=== PATIENT | male | born 1980 | race Caucasian/White ===

== ENCOUNTER 2017-01-18 11:45 | Emergency (ER) | payer SELFPAY ==
[~2017-01-18] VITALS: Ht 180.3 cm; Wt 90.0 kg
[~2017-01-18 11:45] MED LIST: CHLO25 PO
[2017-01-18 11:51] VITALS: BP 123/89; PULSE 87; RESP 18; O2SAT 98
[2017-01-18 11:58] VITALS: BP 123/82; PULSE 76; RESP 18; O2SAT 100
[2017-01-18] MEDS ORDERED: SODIUM CHLOR 0.9% 1000 ML INJ 1,000 ML IV SCH (11:58)
[2017-01-18] MEDS ORDERED: SODIUM CHLORIDE 0.9% FLUSH 5 ML FLUSH IVF PRN (12:00)
[2017-01-18] MEDS ORDERED: NALOXONE HCL 2 MG/2 ML VIAL IV ONE (12:00)
[2017-01-18 12:05] VITALS: RESP 18; O2SAT 98
--- NOTE | 2017-01-18 12:05 | PD ---
HPI Chief Complaint: Respiratory Distress Time Seen by Provider: 11:58 Travel History International Travel<30 days: No Contact w/Intl Traveler<30days: No Traveled to known affect area: No History of Present Illness HPI 36-year-old male with history of alcohol abuse, presents to the ER brought in by EMS because he was found unresponsive, alcohol on breath, and was transported to the ED for further evaluation and treatment. He is not able to give me any further history. He was given Narcan and woke up and answer to his name. However, he is still fairly disoriented. Modifying Factors: None Associated Signs & Symptoms: Altered mental status Risk Factors: History of alcohol abuse PFSH Past Medical History Anxiety: Yes Depression: Yes Seizures: Yes (ETOH related) ?: Not Past Surgical History Other Surgery: Yes (elbow surgery as a child) Social History Alcohol Use: Yes Tobacco Use: Yes Substance Use: Yes (coke, marijuana, crystal meth) Allergies-Medications (Allergen,Severity, Reaction): Coded Allergies: No Known Allergies (Unverified , 05/29/16) Reported Meds & Prescriptions Reported Meds & Active Scripts Active Librium 25 mg Cap (Chlordiazepoxide) 25 Mg Cap 25 Mg PO DIRECTED 25 mg QID x 2 days then 25 mg TID x 2 days then 25 mg BID x 2 days and then 25 mg daily x 2 days Review of Systems ROS Limitations: Altered Mental Status Physical Exam Narrative GENERAL: Well-nourished, well-developed middle age white male patient who is lethargic, obtunded. Positive gag reflex. Alcohol on breath. SKIN: Warm and dry. HEAD: Normocephalic. EYES: No scleral icterus. No injection or drainage. Pupils are equal, round, poorly reactive to light bilaterally. NECK: Supple, trachea midline. CARDIOVASCULAR: Regular rate and rhythm without murmurs, gallops, or rubs. RESPIRATORY: Breath sounds equal bilaterally. No accessory muscle use. GASTROINTESTINAL: Abdomen soft, non-tender, nondistended. MUSCULOSKELETAL: No cyanosis, or edema. BACK: Nontender without obvious deformity. No CVA tenderness. Data Data Last Documented VS Vital Signs Date Time Temp Pulse Resp B/P Pulse Ox O2 Delivery O2 Flow Rate FiO2 01/18/17 13:40 82 18 113/75 98 Room Air 01/18/17 12:21 2 Orders Electrocardiogram (01/18/17 11:58) Ammonia (01/18/17 11:58) Complete Blood Count With Diff (01/18/17 11:58) Comprehensive Metabolic Panel (01/18/17 11:58) Creatine Kinase (Cpk) (01/18/17 11:58) Chest, Single Ap (01/18/17 11:58) Ct Brain W/O Iv Contrast(Rout) (01/18/17 11:58) Blood Glucose (01/18/17 11:58) Ecg Monitoring (01/18/17 11:58) Iv Access Insert/Monitor (01/18/17 11:58) Cath For Specimen (01/18/17 11:58) Oximetry (01/18/17 11:58) Naloxone Inj (Narcan Inj) (01/18/17 12:00) Sodium Chloride 0.9% Flush (Ns Flush) (01/18/17 12:00) Sodium Chlor 0.9% 1000 Ml Inj (Ns 1000 M (01/18/17 11:58) Drug Screen, Random Urine (01/18/17 11:58) Alcohol (Ethanol) (01/18/17 11:58) Labs Laboratory Tests Test 01/18/17 12:10 White Blood Count 6.0 TH/MM3 Red Blood Count 4.91 MIL/MM3 Hemoglobin 15.5 GM/DL Hematocrit 46.0 % Mean Corpuscular Volume 93.8 FL Mean Corpuscular Hemoglobin 31.6 PG Mean Corpuscular Hemoglobin 33.7 % Concent Red Cell Distribution Width 14.6 % Platelet Count 136 TH/MM3 Mean Platelet Volume 7.3 FL Neutrophils (%) (Auto) 55.2 % Lymphocytes (%) (Auto) 33.7 % Monocytes (%) (Auto) 6.7 % Eosinophils (%) (Auto) 2.7 % Basophils (%) (Auto) 1.7 % Neutrophils # (Auto) 3.3 TH/MM3 Lymphocytes # (Auto) 2.0 TH/MM3 Monocytes # (Auto) 0.4 TH/MM3 Eosinophils # (Auto) 0.2 TH/MM3 Basophils # (Auto) 0.1 TH/MM3 CBC Comment DIFF FINAL Differential Comment Sodium Level 143 MEQ/L Potassium Level 3.7 MEQ/L Chloride Level 105 MEQ/L Carbon Dioxide Level 27.1 MEQ/L Anion Gap 11 MEQ/L Blood Urea Nitrogen 6 MG/DL Creatinine 0.69 MG/DL Estimat Glomerular Filtration 129 ML/MIN Rate Random Glucose 96 MG/DL Calcium Level 8.1 MG/DL Total Bilirubin 0.3 MG/DL Aspartate Amino Transf 117 U/L (AST/SGOT) Alanine Aminotransferase 91 U/L (ALT/SGPT) Alkaline Phosphatase 90 U/L Ammonia 23 MCMOL/L Total Creatine Kinase 148 U/L Total Protein 7.6 GM/DL Albumin 3.9 GM/DL Urine Opiates Screen NEG Urine Barbiturates Screen NEG Urine Amphetamines Screen NEG Urine Benzodiazepines Screen NEG Urine Cocaine Screen NEG Urine Cannabinoids Screen NEG Ethyl Alcohol Level 608 MG/DL MDM Medical Decision Making Medical Screen Exam Complete: Yes Emergency Medical Condition: Yes Medical Record Reviewed: Yes Interpretation(s) Laboratory Tests Test 01/18/17 12:10 Platelet Count 136 TH/MM3 (150-450) Blood Urea Nitrogen 6 MG/DL (7-18) Calcium Level 8.1 MG/DL (8.5-10.1) Aspartate Amino Transf 117 U/L (15-37) (AST/SGOT) Alanine Aminotransferase 91 U/L (12-78) (ALT/SGPT) Ethyl Alcohol Level 608 MG/DL (0-5) Last [address] 01/18/17 1158 Signed Impressions: Service Date/Time: Wednesday, January 18, 2017 12:41 - CONCLUSION: Normal examination. Boogie Calvin Jr., MD Chest X-Ray 01/18/17 1158 Signed Impressions: Service Date/Time: Wednesday, January 18, 2017 11:55 - CONCLUSION: Normal examination. Boogie Calvin Jr., MD Differential Diagnosis Altered mental statusintoxication versus acute intracranial injuries versus metabolic issues versus dehydration versus sepsis Narrative Course CT of the brain did not reveal any signs of acute intracranial processes. Lab work shows that he is intoxicated with alcohol 600. At this point, my plan would be to let the patient sleep it off in the ER and release him once sober. Return for new issues as needed. Diagnosis Primary Impression: ALCOHOL ABUSE WITH INTOXICATION, UNCOMPLICATED Disposition: 01 DISCHARGE HOME Condition: Stable Jerzy Chery MD Jan 18, 2017 12:05 Jerzy Chery MD Jan 18, 2017 12:05
--- NOTE | 2017-01-18 12:18 | RADRPT ---
EXAM DATE/TIME: 01/18/2017 11:55 [facility] COMPARISON: No previous studies available for comparison. INDICATIONS : Syncope. MEDICAL HISTORY : None. SURGICAL HISTORY : None. ENCOUNTER: Initial ACUITY: 1 day PAIN SCORE: Non-responsive. LOCATION: Bilateral chest FINDINGS: A single view of the chest demonstrates the lungs to be symmetrically aerated without evidence of mas s, infiltrate or effusion. The cardiomediastinal contours are unremarkable. Osseous structures are intact. CONCLUSION: Normal examination. Boogie Calvin Jr., MD on January 18, 2017 at 12:15 Board Certified Radiologist. This report was verified electronically.
[2017-01-18 12:21] VITALS: BP 121/80; PULSE 66; RESP 18; O2SAT 100
[2017-01-18 12:24] LABS: AUTOMATED NEUTROPHIL # 3.3 TH/MM3 (1.8-7.7); BASOPHIL # 0.1 TH/MM3 (0-0.2); BASOPHIL % 1.7 % (0.0-2.0); EOSINOPHIL # 0.2 TH/MM3 (0-0.4); EOSINOPHIL % 2.7 % (0.0-4.0); HEMO FLAGS DIFF FINAL; LYMPH % 33.7 % (9.0-44.0); MEAN CELL VOLUME 93.8 FL (80.0-100.0); MEAN CORPUSCULAR HEMOGLOBIN 31.6 PG (27.0-34.0); MEAN CORPUSCULAR HGB CONC 33.7 % (32.0-36.0); MONO % 6.7 % (0.0-8.0); NEUT % 55.2 % (16.0-70.0); PLATELET COUNT 136 TH/MM3 (150-450); RED BLOOD COUNT 4.91 MIL/MM3 (4.50-5.90); RED CELL DISTRIBUTION WIDTH 14.6 % (11.6-17.2)
[2017-01-18 12:38] LABS: AMPHETAMINE, URINE NEG (NEG); BARBITURATES, URINE NEG (NEG); COCAINE, URINE NEG (NEG)
[2017-01-18 12:40] LABS: ALT (GPT) 91 U/L (12-78); ANION GAP 11 MEQ/L (5-15); AST (GOT) 117 U/L (15-37); BICARBONATE 27.1 MEQ/L (21.0-32.0); BLOOD UREA NITROGEN 6 MG/DL (7-18); CHLORIDE 105 MEQ/L (98-107); GLOMERULAR FILTRATION RATE 129 ML/MIN (>89); POTASSIUM 3.7 MEQ/L (3.5-5.1); SODIUM (NA) 143 MEQ/L (136-145)
[2017-01-18 12:42] LABS: ALKALINE PHOSPHATASE 90 U/L (45-117); CREATINE KINASE 148 U/L (39-308); TOTAL BILIRUBIN ADULT 0.3 MG/DL (0.2-1.0)
--- NOTE | 2017-01-18 13:19 | RADRPT ---
EXAM DATE/TIME: 01/18/2017 12:41 [facility] COMPARISON: No previous studies available for comparison. INDICATIONS : Found unresponsive, altered mental status. RADIATION DOSE: 40.83 CTDIvol (mGy) MEDICAL HISTORY : Seizures. SURGICAL HISTORY : None. ENCOUNTER: Initial ACUITY: 1 day PAIN SCALE: 0/10 LOCATION: cranial TECHNIQUE: Multiple contiguous axial images were obtained of the head. Using automated exposure control and adj ustment of the mA and/or kV according to patient size, radiation dose was kept as low as reasonably a chievable to obtain optimal diagnostic quality images. FINDINGS: CEREBRUM: The ventricles are normal for age. No evidence of midline shift, mass lesion, hemorrhage or acute in farction. No extra-axial fluid collections are seen. POSTERIOR FOSSA: The cerebellum and brainstem are intact. The 4th ventricle is midline. The cerebellopontine angle i s unremarkable. EXTRACRANIAL: The visualized portion of the orbits is intact. SKULL: The calvaria is intact. No evidence of skull fracture. CONCLUSION: Normal examination. Boogie Calvin Jr., MD on January 18, 2017 at 13:16 Board Certified Radiologist. This report was verified electronically.
[2017-01-18 13:40] VITALS: BP 113/75; PULSE 82; RESP 18; O2SAT 98
[2017-01-18 16:56] VITALS: BP 132/79; TEMP 98.3
--- NOTE | 2017-01-18 21:36 | EKG ---
Date Performed: 01/18/2017 Time Performed: 12:23:26 PTAGE: 36 years EKG: Sinus rhythm WITH FIRST DEGREE AV BLOCK POSSIBLE INFERIOR MYOCARDIAL INFARCTION NONSPECIFIC INTRAVENTRICULAR COND UCTION DELAY ABNORMAL ECG PREVIOUS TRACING : 05/29/2016 15.20 No significant change from previous tracing noted. DOCTOR: Howard Conklin Interpretating Date/Time 01/18/2017 21:35:17
== END 2017-01-18 16:00 | disposition home or self-care (01) ==
LOC: NEPC 11:45
DX: F10.120 Alcohol abuse with intoxication, uncomplicated (principal); R94.31 Abnormal electrocardiogram [ECG] [EKG]; R41.82 Altered mental status, unspecified; F14.90 Cocaine use, unspecified, uncomplicated; F12.90 Cannabis use, unspecified, uncomplicated; Z72.0 Tobacco use
CPT/HCPCS: 70450; 71010; 80053; 80307; 80320; 82140; 82550; 85025; 93005; 96374; 99285; J2310; J7030; P9612

== ENCOUNTER 2017-02-05 15:52 | Emergency (ER) | payer SELFPAY ==
[~2017-02-05] VITALS: Ht 177.8 cm; Wt 100.0 kg
[2017-02-05 15:54] VITALS: BP 117/82; PULSE 76; RESP 20; TEMP 98.5; O2SAT 99
[2017-02-05 16:47] LABS: AUTOMATED NEUTROPHIL # 1.6 TH/MM3 (1.8-7.7); BASOPHIL # 0.1 TH/MM3 (0-0.2); BASOPHIL % 1.4 % (0.0-2.0); EOSINOPHIL # 0.1 TH/MM3 (0-0.4); EOSINOPHIL % 3.3 % (0.0-4.0); HEMATOCRIT 40.3 % (39.0-51.0); HEMO FLAGS DIFF FINAL; LYMPH % 42.3 % (9.0-44.0); LYMPHOCYTE # 1.7 TH/MM3 (1.0-4.8); MEAN CELL VOLUME 92.1 FL (80.0-100.0); MEAN CORPUSCULAR HEMOGLOBIN 31.8 PG (27.0-34.0); MEAN CORPUSCULAR HGB CONC 34.5 % (32.0-36.0); MONO % 13.9 % (0.0-8.0); NEUT % 39.1 % (16.0-70.0); PLATELET COUNT 104 TH/MM3 (150-450); RED BLOOD COUNT 4.37 MIL/MM3 (4.50-5.90); WHITE BLOOD COUNT 4.1 TH/MM3 (4.0-11.0)
[2017-02-05 17:05] LABS: ANION GAP 9 MEQ/L (5-15); AST (GOT) 194 U/L (15-37); BICARBONATE 31.7 MEQ/L (21.0-32.0); BLOOD UREA NITROGEN 6 MG/DL (7-18); CHLORIDE 103 MEQ/L (98-107); GLOMERULAR FILTRATION RATE 133 ML/MIN (>89); POTASSIUM 3.4 MEQ/L (3.5-5.1); SODIUM (NA) 144 MEQ/L (136-145)
[2017-02-05 17:10] LABS: ALKALINE PHOSPHATASE 86 U/L (45-117); ALT (GPT) 135 U/L (12-78); TOTAL BILIRUBIN ADULT 0.2 MG/DL (0.2-1.0)
[2017-02-05] MEDS ORDERED: THIAMINE INJ 100 MG in SODIUM CHLORIDE 0.9% INJ 100 ML IV ONE (17:30)
--- NOTE | 2017-02-05 17:35 | PD ---
HPI Chief Complaint: Alcohol/Drug Intoxication Time Seen by Provider: 17:03 Travel History International Travel<30 days: No Contact w/Intl Traveler<30days: No Traveled to known affect area: No History of Present Illness HPI 36yo M with PMH of alcohol abuse presents to the ED for alcohol intoxication. Pt is easily arousable and admits to drinking a few pints today. Denies any fall, chest pain, sob, n/v, abdominal pain, weakness or numbness. PFSH Past Medical History Anxiety: Yes Depression: Yes Seizures: Yes (ETOH related) Past Surgical History Other Surgery: Yes (elbow surgery as a child) Social History Alcohol Use: Yes Tobacco Use: Yes Substance Use: Yes (coke, marijuana, crystal meth) Allergies-Medications (Allergen,Severity, Reaction): Coded Allergies: No Known Allergies (Unverified , 05/29/16) Reported Meds & Prescriptions Reported Meds & Active Scripts Active No Active Prescriptions or Reported Medications Review of Systems Except as stated in HPI: all other systems reviewed are Neg Physical Exam Narrative GENERAL: 36yo M intoxicated. SKIN: Warm and dry. HEAD: Atraumatic. Normocephalic. EYES: Pupils equal and round at 3mm bilaterally. EOMI. ENT: No nasal bleeding or discharge. Mucous membranes pink and moist. NECK: Trachea midline. No JVD. CARDIOVASCULAR: Regular rate and rhythm. No murmur appreciated. RESPIRATORY: No accessory muscle use. Clear to auscultation. Breath sounds equal bilaterally. GASTROINTESTINAL: Abdomen soft, non-tender, nondistended. No rebound tenderness or guarding. MUSCULOSKELETAL: No obvious deformities. No clubbing. No cyanosis. No edema. NEUROLOGICAL: Intoxicated but easily arousable and answers questions. No obvious cranial nerve deficits. Motor grossly within normal limits. Data Data Last Documented VS Vital Signs Date Time Temp Pulse Resp B/P Pulse Ox O2 Delivery O2 Flow Rate FiO2 02/06/17 06:35 98.2 81 14 123/63 99 02/05/17 19:10 Room Air Orders Complete Blood Count With Diff (02/05/17 16:30) Comprehensive Metabolic Panel (02/05/17 16:30) Alcohol (Ethanol) (02/05/17 16:30) Thiamine Inj (Thiamine Inj) (02/05/17 17:30) Labs Laboratory Tests Test 02/05/17 16:30 White Blood Count 4.1 TH/MM3 Red Blood Count 4.37 MIL/MM3 Hemoglobin 13.9 GM/DL Hematocrit 40.3 % Mean Corpuscular Volume 92.1 FL Mean Corpuscular Hemoglobin 31.8 PG Mean Corpuscular Hemoglobin 34.5 % Concent Red Cell Distribution Width 15.0 % Platelet Count 104 TH/MM3 Mean Platelet Volume 7.6 FL Neutrophils (%) (Auto) 39.1 % Lymphocytes (%) (Auto) 42.3 % Monocytes (%) (Auto) 13.9 % Eosinophils (%) (Auto) 3.3 % Basophils (%) (Auto) 1.4 % Neutrophils # (Auto) 1.6 TH/MM3 Lymphocytes # (Auto) 1.7 TH/MM3 Monocytes # (Auto) 0.6 TH/MM3 Eosinophils # (Auto) 0.1 TH/MM3 Basophils # (Auto) 0.1 TH/MM3 CBC Comment DIFF FINAL Differential Comment Sodium Level 144 MEQ/L Potassium Level 3.4 MEQ/L Chloride Level 103 MEQ/L Carbon Dioxide Level 31.7 MEQ/L Anion Gap 9 MEQ/L Blood Urea Nitrogen 6 MG/DL Creatinine 0.67 MG/DL Estimat Glomerular Filtration 133 ML/MIN Rate Random Glucose 88 MG/DL Calcium Level 7.9 MG/DL Total Bilirubin 0.2 MG/DL Aspartate Amino Transf 194 U/L (AST/SGOT) Alanine Aminotransferase 135 U/L (ALT/SGPT) Alkaline Phosphatase 86 U/L Total Protein 7.1 GM/DL Albumin 3.7 GM/DL Ethyl Alcohol Level 477 MG/DL [facility] Medical Decision Making Medical Screen Exam Complete: Yes Emergency Medical Condition: Yes Differential Diagnosis Alcohol intoxication Narrative Course 36yo M with alcohol intoxication. Pt admits to drinking a few pints of alcohol and denies any complaints. Pt has no signs of trauma and follows commands. Labs reviewed, no leukocytosis. K: 3.4. Elevated liver enzymes but pt has no abdominal pain and is a chronic alcoholic. Blood alcohol is 477. VS wnl. Pt given thiamine. Pt is medically clear for discharge when sober and ambulating without assistance. Diagnosis Primary Impression: Alcohol intoxication Qualified Code: F10.120 - Alcohol intoxication, uncomplicated Patient Instructions: General Instructions Departure Forms: Tests/Procedures Additional Instructions: Please follow up with your PMD in 3-7 days. Return to the ED if symptoms worsen. Med/Other Pt SpecificInfo: No Change to Meds Scripts No Active Prescriptions or Reported Meds Disposition: 01 DISCHARGE HOME Condition: Stable Alva Paredes DO Feb 05, 2017 17:35
[2017-02-05 19:10] VITALS: BP 145/63; PULSE 73; RESP 15; TEMP 98.4; O2SAT 96
[2017-02-06 06:35] VITALS: BP 123/63; TEMP 98.2
== END 2017-02-06 06:41 | disposition home or self-care (01) ==
LOC: NEPA 15:52
DX: F10.120 Alcohol abuse with intoxication, uncomplicated (principal); R74.8 Abnormal levels of other serum enzymes; Z72.0 Tobacco use
CPT/HCPCS: 80053; 80307; 85025; 96365; 99284; J3411

== ENCOUNTER 2017-02-08 00:15 | Emergency (ER) | payer SELFPAY ==
[2017-02-08 00:18] VITALS: BP 133/85; PULSE 79; RESP 18; TEMP 98.2; O2SAT 98
--- NOTE | 2017-02-08 00:43 | PD ---
HPI Chief Complaint: Alcohol/Drug Intoxication Time Seen by Provider: 00:41 Travel History International Travel<30 days: No Contact w/Intl Traveler<30days: No Traveled to known affect area: No History of Present Illness HPI Patient comes in by EMS after being found intoxicated. Patient denies any medical complaints or concerns this time. Denies any chest pain, shortness of breath, abdominal pain, headache, fevers, nausea, vomiting, or pain anywhere. Patient states that [place] is in town for bike week and apparently drank too much. PFSH Past Medical History Anxiety: Yes Depression: Yes Diminished Hearing: No Seizures: Yes (ETOH related) Tetanus Vaccination: Unknown Influenza Vaccination: No Past Surgical History Other Surgery: Yes (Elbow surgery as a child) Social History Alcohol Use: Yes Tobacco Use: Yes Substance Use: Yes (coke, marijuana, crystal meth) Allergies-Medications (Allergen,Severity, Reaction): Coded Allergies: No Known Allergies (Unverified , 02/08/17) Reported Meds & Prescriptions Reported Meds & Active Scripts Active No Active Prescriptions or Reported Medications Review of Systems ROS Limitations: Intoxication Except as stated in HPI: all other systems reviewed are Neg Physical Exam Exam Limitations: Intoxication Narrative GENERAL: Well-developed, overly nourished, in no acute distress, and non-ill appearing. SKIN: Warm and dry. HEAD: Atraumatic. Normocephalic. EYES: Pupils equal and round. EOMI. No scleral icterus. No injection or drainage. ENT: No nasal bleeding or discharge. Mucous membranes pink and moist. NECK: Trachea midline. Supple. No nuclear rigidity. CARDIOVASCULAR: Regular rate and rhythm. No murmur appreciated. RESPIRATORY: No accessory muscle use. No respiratory distress. Clear to auscultation. Breath sounds equal bilaterally. MUSCULOSKELETAL: No obvious deformities. No clubbing. No cyanosis. No edema. Full range of motion. NEUROLOGICAL: Awake and alert. No obvious cranial nerve deficits. Motor grossly within normal limits. PSYCHIATRIC: Appropriate mood and affect; insight and judgment normal. Data Data Last Documented VS Vital Signs Date Time Temp Pulse Resp B/P Pulse Ox O2 Delivery O2 Flow Rate FiO2 02/08/17 03:08 99 18 100 Room Air 02/08/17 00:18 98.2 133/85 MDM Medical Decision Making Medical Screen Exam Complete: Yes Emergency Medical Condition: No Differential Diagnosis Alcohol intoxication, alcohol abuse, alcohol dependence, other Narrative Course Patient was seen and examined. Patient will be monitored in the emergency department until clinically sober and able to ambulate on their own or until a sober responsible adult comes to pick them up. RN is aware of this. Patient in no obvious distress upon re-evaluation. Instructions and recommendations were detailed in discharge paperwork. Pt ambulated without difficulty out of ED at discharge. Diagnosis Primary Impression: Alcohol intoxication Qualified Code: F10.120 - Alcohol intoxication, uncomplicated Patient Instructions: Alcohol Intoxication (ED), General Instructions Additional Instructions: Follow-up with your primary care physician as needed. Stop drinking. Return to the emergency department for any emergent concerns. Scripts No Active Prescriptions or Reported Meds Disposition: 01 DISCHARGE HOME Condition: Stable Balwinder Smith Feb 08, 2017 00:43
[2017-02-08 03:08] VITALS: PULSE 99; RESP 18; O2SAT 100
== END 2017-02-08 06:54 | disposition home or self-care (01) ==
LOC: NEPA 00:15
DX: F10.120 Alcohol abuse with intoxication, uncomplicated (principal); Z72.0 Tobacco use
CPT/HCPCS: 99284

== ENCOUNTER 2017-03-16 15:56 | Emergency (ER) | payer SELFPAY ==
[~2017-03-16] VITALS: Ht 180.3 cm; Wt 93.0 kg
[2017-03-16 16:02] VITALS: BP 118/61; PULSE 93; RESP 19; O2SAT 93
[2017-03-16] MEDS ORDERED: SODIUM CHLOR 0.9% 1000 ML INJ 1,000 ML IV ONE ×2 (16:15→18:30)
[2017-03-16] MEDS ORDERED: SODIUM CHLORIDE 0.9% FLUSH 10 ML FLUSH IVF PRN (16:15)
--- NOTE | 2017-03-16 16:40 | PD ---
HPI Chief Complaint: Syncope/Near-Syncope Time Seen by Provider: 16:20 Travel History International Travel<30 days: No Contact w/Intl Traveler<30days: No Traveled to known affect area: No History of Present Illness HPI Patient is a 36-year-old male presenting to emergency via EMS for evaluation after a witnessed syncopal episode. Patient states that he has been drinking this morning, approximately 12 alcoholic beverages. He walked outside and passed out. Patient denies any pain currently, he denies any dizziness or chest pain, shortness of breath, headache or head injury. Patient states that he is fine and wants to go home. He states he found his friend did this morning , he reports that she was only 47 years old and of COPD. This is why he has been drinking all day. [facility] Past Medical History Anxiety: Yes Depression: Yes Diminished Hearing: No Integumentary: Yes (psoriasis) Seizures: Yes (ETOH related) Influenza Vaccination: No Past Surgical History Surgical History: No Previous Surgery Other Surgery: Yes (Elbow surgery as a child) Social History Alcohol Use: Yes Tobacco Use: Yes (11/26 ppd) Substance Use: Yes (coke, marijuana, crystal meth, ) Allergies-Medications (Allergen,Severity, Reaction): Coded Allergies: No Known Allergies (Unverified , 03/16/17) Reported Meds & Prescriptions Reported Meds & Active Scripts Active No Active Prescriptions or Reported Medications Review of Systems Except as stated in HPI: all other systems reviewed are Neg Neurologic: Positive: Syncope Psychiatric: Positive: Substance Abuse Physical Exam Narrative GENERAL: Well-developed, well-nourished, alert male. SKIN: Focused skin assessment warm/dry. HEAD: Atraumatic. Normocephalic. EYES: Pupils equal and round. No scleral icterus. No injection or drainage. ENT: No nasal bleeding or discharge. Mucous membranes pink and moist. NECK: Trachea midline. No JVD. CARDIOVASCULAR: Regular rate and rhythm. No murmur appreciated. RESPIRATORY: No accessory muscle use. Scattered expiratory wheezes in bases. Breath sounds equal bilaterally. GASTROINTESTINAL: Abdomen soft, non-tender, nondistended. Hepatic and splenic margins not palpable. MUSCULOSKELETAL: No obvious deformities. No clubbing. No cyanosis. No edema. NEUROLOGICAL: Awake and alert. No obvious cranial nerve deficits. Motor grossly within normal limits. Normal speech. PSYCHIATRIC: Appropriate mood and affect; insight and judgment normal. Data Data Last Documented VS Vital Signs Date Time Temp Pulse Resp B/P Pulse Ox O2 Delivery O2 Flow Rate FiO2 03/16/17 17:00 81 19 104/73 93 20 109/77 91 19 108/71 03/16/17 16:45 99 Orders Complete Blood Count With Diff (03/16/17 16:12) Comprehensive Metabolic Panel (03/16/17 16:12) Urinalysis - C+S If Indicated (03/16/17 16:12) Electrocardiogram (03/16/17 16:12) Oximetry (03/16/17 16:12) Iv Access Insert/Monitor (03/16/17 16:12) Ecg Monitoring (03/16/17 16:12) Sodium Chloride 0.9% Flush (Ns Flush) (03/16/17 16:15) Alcohol (Ethanol) (03/16/17 16:12) Sodium Chlor 0.9% 1000 Ml Inj (Ns 1000 M (03/16/17 16:15) Orthostatic Vital Signs (03/16/17 16:54) Ckmb (Isoenzyme) Profile (03/16/17 16:32) Troponin I (03/16/17 16:32) Sodium Chlor 0.9% 1000 Ml Inj (Ns 1000 M (03/16/17 18:30) Ct Brain W/O Iv Contrast(Rout) (03/16/17 ) Labs Laboratory Tests Test 03/16/17 03/16/17 16:30 16:32 Urine Color LIGHT-YELLOW Urine Turbidity CLEAR Urine pH 5.0 Urine Specific [place] 1.002 Urine Protein NEG mg/dL Urine Glucose (UA) NEG mg/dL Urine Ketones NEG mg/dL Urine Occult Blood NEG Urine Nitrite NEG Urine Bilirubin NEG Urine Urobilinogen LESS THAN 2.0 MG/DL Urine Leukocyte Esterase NEG Urine RBC LESS THAN 1 /hpf Urine WBC 1 /hpf Urine Mucus FEW /lpf Microscopic Urinalysis Comment CULT NOT INDICATED White Blood Count 6.0 TH/MM3 Red Blood Count 4.01 MIL/MM3 Hemoglobin 13.0 GM/DL Hematocrit 38.4 % Mean Corpuscular Volume 95.8 FL Mean Corpuscular Hemoglobin 32.5 PG Mean Corpuscular Hemoglobin 33.9 % Concent Red Cell Distribution Width 15.9 % Platelet Count 268 TH/MM3 Mean Platelet Volume 6.8 FL Neutrophils (%) (Auto) 48.6 % Lymphocytes (%) (Auto) 35.0 % Monocytes (%) (Auto) 11.1 % Eosinophils (%) (Auto) 3.9 % Basophils (%) (Auto) 1.4 % Neutrophils # (Auto) 2.9 TH/MM3 Lymphocytes # (Auto) 2.1 TH/MM3 Monocytes # (Auto) 0.7 TH/MM3 Eosinophils # (Auto) 0.2 TH/MM3 Basophils # (Auto) 0.1 TH/MM3 CBC Comment DIFF FINAL Differential Comment Sodium Level 144 MEQ/L Potassium Level 3.5 MEQ/L Chloride Level 109 MEQ/L Carbon Dioxide Level 25.4 MEQ/L Anion Gap 10 MEQ/L Blood Urea Nitrogen 4 MG/DL Creatinine 0.55 MG/DL Estimat Glomerular Filtration 168 ML/MIN Rate Random Glucose 88 MG/DL Calcium Level 8.1 MG/DL Total Bilirubin 0.2 MG/DL Aspartate Amino Transf 102 U/L (AST/SGOT) Alanine Aminotransferase 99 U/L (ALT/SGPT) Alkaline Phosphatase 84 U/L Total Creatine Kinase 93 U/L Troponin I LESS THAN 0.02 NG/ML Total Protein 6.6 GM/DL Albumin 3.3 GM/DL Ethyl Alcohol Level 339 MG/DL MDM Medical Decision Making Medical Screen Exam Complete: Yes Emergency Medical Condition: Yes Interpretation(s) Laboratory Tests Test 03/16/17 03/16/17 16:30 16:32 Urine Color LIGHT-YELLOW Urine Turbidity CLEAR Urine pH 5.0 Urine Specific [place] 1.002 Urine Protein NEG mg/dL Urine Glucose (UA) NEG mg/dL Urine Ketones NEG mg/dL Urine Occult Blood NEG Urine Nitrite NEG Urine Bilirubin NEG Urine Urobilinogen LESS THAN 2.0 MG/DL Urine Leukocyte Esterase NEG Urine RBC LESS THAN 1 /hpf Urine WBC 1 /hpf Urine Mucus FEW /lpf Microscopic Urinalysis Comment CULT NOT INDICATED White Blood Count 6.0 TH/MM3 Red Blood Count 4.01 MIL/MM3 Hemoglobin 13.0 GM/DL Hematocrit 38.4 % Mean Corpuscular Volume 95.8 FL Mean Corpuscular Hemoglobin 32.5 PG Mean Corpuscular Hemoglobin 33.9 % Concent Red Cell Distribution Width 15.9 % Platelet Count 268 TH/MM3 Mean Platelet Volume 6.8 FL Neutrophils (%) (Auto) 48.6 % Lymphocytes (%) (Auto) 35.0 % Monocytes (%) (Auto) 11.1 % Eosinophils (%) (Auto) 3.9 % Basophils (%) (Auto) 1.4 % Neutrophils # (Auto) 2.9 TH/MM3 Lymphocytes # (Auto) 2.1 TH/MM3 Monocytes # (Auto) 0.7 TH/MM3 Eosinophils # (Auto) 0.2 TH/MM3 Basophils # (Auto) 0.1 TH/MM3 CBC Comment DIFF FINAL Differential Comment Sodium Level 144 MEQ/L Potassium Level 3.5 MEQ/L Chloride Level 109 MEQ/L Carbon Dioxide Level 25.4 MEQ/L Anion Gap 10 MEQ/L Blood Urea Nitrogen 4 MG/DL Creatinine 0.55 MG/DL Estimat Glomerular Filtration 168 ML/MIN Rate Random Glucose 88 MG/DL Calcium Level 8.1 MG/DL Total Bilirubin 0.2 MG/DL Aspartate Amino Transf 102 U/L (AST/SGOT) Alanine Aminotransferase 99 U/L (ALT/SGPT) Alkaline Phosphatase 84 U/L Total Creatine Kinase 93 U/L Troponin I LESS THAN 0.02 NG/ML Total Protein 6.6 GM/DL Albumin 3.3 GM/DL Ethyl Alcohol Level 339 MG/DL Vital Signs Date Time Temp Pulse Resp B/P Pulse Ox O2 Delivery O2 Flow Rate FiO2 03/16/17 16:02 93 19 118/61 93 Differential Diagnosis Intoxication versus electrolyte abnormality versus vasovagal versus arrhythmia versus other Narrative Course Patient's 36-year-old male brought in by EMS for evaluation after a syncopal episode. His vital signs are stable, patient is alert and oriented 3 with no neurological deficits. Labs ordered and pending. Patient placed on telemetry monitoring, continuous pulse oximetry, IV access initiated. Alcohol level was 339, CBC unremarkable, chemistry is unremarkable. Urinalysis unremarkable. CT scan of the brain is negative for acute abnormality. Patient has been sleeping in no acute distress, he was observed ambulating emergency department without difficulty. Patient is medically cleared at this time, he will be allowed to sober up in the emergency department. Patient was encouraged to avoid excessive use of alcohol. He is encouraged follow-up with his primary doctor return to emergency department any new or worsening symptoms. Patient is stable for discharge Diagnosis Primary Impression: Syncope Qualified Code: R55 - Syncope, unspecified syncope type Additional Impression: Alcohol intoxication Qualified Code: F10.120 - Alcohol intoxication, uncomplicated Referrals: Primary Care Physician Patient Instructions: Abuse of Alcohol (ED), Alcohol Intoxication (ED), General Instructions, Syncope (DC) Additional Instructions: Avoid excessive use of alcohol Maintain adequate fluid intake Eat regular meals Follow-up with a primary doctor Return to ER for any new or worsening symptoms Med/Other Pt SpecificInfo: No Change to Meds Scripts No Active Prescriptions or Reported Meds Disposition: 01 DISCHARGE HOME Condition: Stable Elizabeth Gil Mar 16, 2017 16:40 Elizabeth Gil Mar 16, 2017 16:40
[2017-03-16 16:45] VITALS: O2SAT 99
[2017-03-16 17:00] VITALS: BP_SYST 104; BP_SYST 108; BP_SYST 109; BP_DIAS 71; BP_DIAS 73; BP_DIAS 77; RESP 19; RESP 20
[2017-03-16 17:13] LABS: AUTOMATED NEUTROPHIL # 2.9 TH/MM3 (1.8-7.7); BASOPHIL # 0.1 TH/MM3 (0-0.2); BASOPHIL % 1.4 % (0.0-2.0); EOSINOPHIL # 0.2 TH/MM3 (0-0.4); EOSINOPHIL % 3.9 % (0.0-4.0); HEMATOCRIT 38.4 % (39.0-51.0); HEMO FLAGS DIFF FINAL; LYMPHOCYTE # 2.1 TH/MM3 (1.0-4.8); MEAN CELL VOLUME 95.8 FL (80.0-100.0); MEAN CORPUSCULAR HEMOGLOBIN 32.5 PG (27.0-34.0); MEAN CORPUSCULAR HGB CONC 33.9 % (32.0-36.0); MONO % 11.1 % (0.0-8.0); NEUT % 48.6 % (16.0-70.0); PLATELET COUNT 268 TH/MM3 (150-450); RED BLOOD COUNT 4.01 MIL/MM3 (4.50-5.90); RED CELL DISTRIBUTION WIDTH 15.9 % (11.6-17.2)
[2017-03-16 17:26] LABS: BLOOD, URINE NEG (NEG); COMMENT (UR) CULT NOT INDICATED; CULTURE IF INDICATED CULT NOT INDICATED; GLUCOSE,URINE NEG (NEG); KETONE, URINE NEG (NEG); MUCUS URINE FEW /lpf (OCC); NITRITE,URINE NEG (NEG); URINE COLOR LIGHT-YELLOW (YELLW/STRAW)
[2017-03-16 17:31] LABS: ANION GAP 10 MEQ/L (5-15)
[2017-03-16 17:36] LABS: ALKALINE PHOSPHATASE 84 U/L (45-117); ALT (GPT) 99 U/L (12-78); AST (GOT) 102 U/L (15-37); BICARBONATE 25.4 MEQ/L (21.0-32.0); BLOOD UREA NITROGEN 4 MG/DL (7-18); CHLORIDE 109 MEQ/L (98-107); GLOMERULAR FILTRATION RATE 168 ML/MIN (>89); POTASSIUM 3.5 MEQ/L (3.5-5.1); SODIUM (NA) 144 MEQ/L (136-145); TOTAL BILIRUBIN ADULT 0.2 MG/DL (0.2-1.0)
[2017-03-16 18:41] LABS: CREATINE KINASE 93 U/L (39-308)
--- NOTE | 2017-03-16 20:20 | RADRPT ---
EXAM DATE/TIME: 03/16/2017 20:11 [facility] COMPARISON: CT BRAIN W/O CONTRAST, January 18, 2017, 12:41. INDICATIONS : Syncopal episode today. RADIATION DOSE: 40.41 CTDIvol (mGy) MEDICAL HISTORY : Seizures. SURGICAL HISTORY : None. ENCOUNTER: Initial ACUITY: 1 day PAIN SCALE: 5/10 LOCATION: Bilateral head TECHNIQUE: Multiple contiguous axial images were obtained of the head. Using automated exposure control and adj ustment of the mA and/or kV according to patient size, radiation dose was kept as low as reasonably a chievable to obtain optimal diagnostic quality images. FINDINGS: CEREBRUM: The ventricles are normal for age. No evidence of midline shift, mass lesion, hemorrhage or acute in farction. No extra-axial fluid collections are seen. POSTERIOR FOSSA: The cerebellum and brainstem are intact. The 4th ventricle is midline. The cerebellopontine angle i s unremarkable. EXTRACRANIAL: The visualized portion of the orbits is intact. SKULL: The calvaria is intact. No evidence of skull fracture. CONCLUSION: Negative CT of the brain without contrast. Boogie Herron MD on March 16, 2017 at 20:17 Board Certified Radiologist. This report was verified electronically.
[2017-03-16 20:38] VITALS: BP 111/73; PULSE 80; RESP 19; TEMP 98.2; O2SAT 98
--- NOTE | 2017-03-17 13:32 | EKG ---
Date Performed: 03/16/2017 Time Performed: 16:44:50 PTAGE: 36 years EKG: Sinus rhythm WITH FIRST DEGREE AV BLOCK POSSIBLE LEFT ATRIAL ENLARGEMENT POSSIBLE LEFT VENTRICULAR HYPERTROPHY Co mpared to prior tracing no significant change ABNORMAL ECG PREVIOUS TRACING : 01/18/2017 12.23 DOCTOR: Spencer Garcia Interpretating Date/Time 03/17/2017 13:30:32
== END 2017-03-16 20:42 | disposition home or self-care (01) ==
LOC: NEPE 15:56
DX: R55 Syncope and collapse (principal); F10.120 Alcohol abuse with intoxication, uncomplicated; R94.31 Abnormal electrocardiogram [ECG] [EKG]; F17.200 Nicotine dependence, unspecified, uncomplicated; Z86.59 Personal history of other mental and behavioral disorders; Z87.2 Personal history of diseases of the skin and subcutaneous tissue
CPT/HCPCS: 70450; 80053; 80307; 81001; 82550; 84484; 85025; 93005

== ENCOUNTER 2017-05-11 11:36 | Inpatient (IN) | payer SELFPAY ==
[~2017-05-11] VITALS: Ht 180.3 cm; Wt 91.5 kg
[2017-05-11 11:39] VITALS: BP 126/74; PULSE 118; RESP 20; TEMP 99.6; O2SAT 98
[2017-05-11] MEDS ORDERED: SODIUM CHLOR 0.9% 1000 ML INJ 1,000 ML IV SCH (12:43)
[2017-05-11] MEDS ORDERED: MORPHINE SULFATE 4 MG/ML INJ IV PUSH ONE (12:45)
[2017-05-11] MEDS ORDERED: KETOROLAC TROMETHAMINE 30 MG/ML (IVP) VIAL IVP ONE (12:45)
[2017-05-11] MEDS ORDERED: SODIUM CHLORIDE 0.9% FLUSH 10 ML FLUSH IV FLUSH PRN (12:45)
[2017-05-11 13:10] LABS: BASOPHIL % 0.2 % (0.0-2.0); EOSINOPHIL % 0.2 % (0.0-4.0); HEMATOCRIT 44.2 % (39.0-51.0); HEMO FLAGS DIFF FINAL; LYMPH % 6.5 % (9.0-44.0); LYMPHOCYTE # 0.7 TH/MM3 (1.0-4.8); MEAN CELL VOLUME 95.2 FL (80.0-100.0); MEAN CORPUSCULAR HEMOGLOBIN 31.8 PG (27.0-34.0); MEAN CORPUSCULAR HGB CONC 33.4 % (32.0-36.0); MONO % 12.3 % (0.0-8.0); NEUT % 80.8 % (16.0-70.0); PLATELET COUNT 143 TH/MM3 (150-450); RED BLOOD COUNT 4.64 MIL/MM3 (4.50-5.90); RED CELL DISTRIBUTION WIDTH 13.5 % (11.6-17.2); WHITE BLOOD COUNT 11.2 TH/MM3 (4.0-11.0)
[2017-05-11 13:28] LABS: ALKALINE PHOSPHATASE 136 U/L (45-117); ALT (GPT) 71 U/L (12-78); ANION GAP 8 MEQ/L (5-15); AST (GOT) 72 U/L (15-37); BLOOD UREA NITROGEN 4 MG/DL (7-18); CHLORIDE 94 MEQ/L (98-107); GLOMERULAR FILTRATION RATE 146 ML/MIN (>89); POTASSIUM 4.2 MEQ/L (3.5-5.1); SODIUM (NA) 131 MEQ/L (136-145); TOTAL BILIRUBIN ADULT 1.1 MG/DL (0.2-1.0)
--- NOTE | 2017-05-11 13:41 | RADRPT ---
EXAM DATE/TIME: 05/11/2017 13:11 [facility] COMPARISON: No previous studies available for comparison. INDICATIONS : Right low abdomen pain for three days. ORAL CONTRAST: No oral contrast ingested. RADIATION DOSE: 9.96 CTDIvol (mGy) MEDICAL HISTORY : ETOH SURGICAL HISTORY : None. ENCOUNTER: Initial ACUITY: 3 days PAIN SCALE: 6/10 LOCATION: Right lower quadrant TECHNIQUE: Volumetric scanning of the abdomen and pelvis was performed. Using automated exposure control and ad justment of the mA and/or kV according to patient size, radiation dose was kept as low as reasonably achievable to obtain optimal diagnostic quality images. FINDINGS: LOWER LUNGS: The visualized lower lungs are clear. LIVER: Severe diffuse low-density. No focal lesion is seen. There are calcified stones in the gallbladder. There is no dilation of the biliary tree. SPLEEN: Normal size without lesion. PANCREAS: Within normal limits. KIDNEYS: Normal in size and shape. There is no mass, stone, or hydronephrosis. ADRENAL GLANDS: Within normal limits. VASCULAR: There is no aortic aneurysm. BOWEL/MESENTERY: The stomach, small bowel, and colon demonstrate no acute abnormality. There is no free intraperitone al air or fluid. ABDOMINAL WALL: No hernia. RETROPERITONEUM: There is no lymphadenopathy. BLADDER: No wall thickening or mass. REPRODUCTIVE: Within normal limits. INGUINAL: There is severe subcutaneous edema and inflammatory change in the right superior inguinal region and along the right lateral inferior pelvis. There is an enlarged right inguinal lymph node measuring 19 x 11 mm. There is also subcutaneous stranding and skin thickening along the right lateral gluteal reg ion. MUSCULOSKELETAL: No acute abnormality. CONCLUSION: 1. Skin thickening and subcutaneous inflammatory changes along the right lateral pelvis, right inguin al region, and right lateral gluteal region. This could represent a severe cellulitis. There is no uribe bcutaneous abscess. An enlarged right inguinal lymph node is present likely representing reactive lym phadenopathy. 2. Nonacute findings include hepatomegaly with severe steatosis and cholelithiasis. Marty Franco MD on May 11, 2017 at 13:33 Board Certified Radiologist. This report was verified electronically.
[2017-05-11] MEDS ORDERED: PIPERACIL-TAZO 4.5 GM PREMIX 100 ML IV ONE (14:00)
[2017-05-11] MEDS ORDERED: VANCOMYCIN INJ 1,000 MG in SODIUM CHLOR 0.9% 250 ML INJ 250 ML IV ONE (14:00)
[2017-05-11 14:04] VITALS: BP 124/87; PULSE 84; RESP 16; O2SAT 98
--- NOTE | 2017-05-11 14:09 | PD ---
HPI Chief Complaint: Abdominal Pain Time Seen by Provider: 11:51 Travel History International Travel<30 days: No Contact w/Intl Traveler<30days: No Traveled to known affect area: No History of Present Illness HPI 36-year-old male came to the emergency room with history of right lower quadrant pain. Patient says this has been going on for past 3 days. Patient is homeless and has noticed a lot of sores on his body. His temperature was 99.9 and heart rate in 1 teens in triage. Patient says he drinks a lot of alcohol but does not do any drugs. He is awake and answering questions appropriately but does appear to be in distress. [facility] Past Medical History Narrative Medical List of his past medical, surgical, social and family history is reviewed from the nursing note. Anxiety: Yes Depression: Yes Cardiovascular Problems: Yes (ANGINA ) Diminished Hearing: No Integumentary: Yes (psoriasis) Seizures: Yes Past Surgical History Other Surgery: Yes (Elbow surgery as a child) Social History Alcohol Use: Yes (daily) Tobacco Use: Yes Substance Use: No Allergies-Medications (Allergen,Severity, Reaction): Coded Allergies: No Known Allergies (Unverified , 05/11/17) Comments No known drug allergies. Reported Meds & Prescriptions Reported Meds & Active Scripts Active No Active Prescriptions or Reported Medications Narrative Medication List of his home medications reviewed from the nursing note. Review of Systems Except as stated in HPI: all other systems reviewed are Neg Physical Exam Narrative GENERAL: Awake, alert, moderate distress, poor skin hygiene, extremely foul odor SKIN: Focused skin assessment warm/dry. Multiple small pustules and abscesses and excoriated skin all over the body. HEAD: Atraumatic. Normocephalic. EYES: Pupils equal and round. No scleral icterus. No injection or drainage. ENT: No nasal bleeding or discharge. Mucous membranes pink and moist. NECK: Trachea midline. No JVD. CARDIOVASCULAR: Regular rate and rhythm. No murmur appreciated. RESPIRATORY: No accessory muscle use. Clear to auscultation. Breath sounds equal bilaterally. GASTROINTESTINAL: Severe right lower quadrant tenderness with guarding, nondistended. Hepatic and splenic margins not palpable. MUSCULOSKELETAL: No obvious deformities. No clubbing. No cyanosis. No edema. NEUROLOGICAL: Awake and alert. No obvious cranial nerve deficits. Motor grossly within normal limits. Normal speech. PSYCHIATRIC: Appropriate mood and affect; insight and judgment normal. Data Data Last Documented VS Vital Signs Date Time Temp Pulse Resp B/P Pulse Ox O2 Delivery O2 Flow Rate FiO2 05/11/17 14:04 84 16 124/87 98 05/11/17 12:51 Room Air 05/11/17 11:39 99.6 Orders Complete Blood Count With Diff (05/11/17 12:43) Comprehensive Metabolic Panel (05/11/17 12:43) Lipase (05/11/17 12:43) Lactic Acid (05/11/17 12:43) Urinalysis - C+S If Indicated (05/11/17 12:43) Ct Abd/Pel W/O Iv Contrast (05/11/17 12:43) Iv Access Insert/Monitor (05/11/17 12:43) Ecg Monitoring (05/11/17 12:43) Oximetry (05/11/17 12:43) Morphine Inj (Morphine Inj) (05/11/17 12:45) Sodium Chlor 0.9% 1000 Ml Inj (Ns 1000 M (05/11/17 12:43) Sodium Chloride 0.9% Flush (Ns Flush) (05/11/17 12:45) Ketorolac Inj (Toradol Inj) (05/11/17 12:45) Blood Culture (05/11/17 12:44) Piperacil-Tazo 4.5 Gm Premix (Zosyn 4.5 (05/11/17 14:00) Vancomycin Inj (Vancomycin Inj) (05/11/17 14:00) Admit Order (Ed Use Only) (05/11/17 15:05) Labs Laboratory Tests Test 05/11/17 05/11/17 12:53 13:58 White Blood Count 11.2 TH/MM3 Red Blood Count 4.64 MIL/MM3 Hemoglobin 14.7 GM/DL Hematocrit 44.2 % Mean Corpuscular Volume 95.2 FL Mean Corpuscular Hemoglobin 31.8 PG Mean Corpuscular Hemoglobin 33.4 % Concent Red Cell Distribution Width 13.5 % Platelet Count 143 TH/MM3 Mean Platelet Volume 7.3 FL Neutrophils (%) (Auto) 80.8 % Lymphocytes (%) (Auto) 6.5 % Monocytes (%) (Auto) 12.3 % Eosinophils (%) (Auto) 0.2 % Basophils (%) (Auto) 0.2 % Neutrophils # (Auto) 9.0 TH/MM3 Lymphocytes # (Auto) 0.7 TH/MM3 Monocytes # (Auto) 1.4 TH/MM3 Eosinophils # (Auto) 0.0 TH/MM3 Basophils # (Auto) 0.0 TH/MM3 CBC Comment DIFF FINAL Differential Comment Erythrocyte Sedimentation Rate 29 mm/hr Sodium Level 131 MEQ/L Potassium Level 4.2 MEQ/L Chloride Level 94 MEQ/L Carbon Dioxide Level 29.0 MEQ/L Anion Gap 8 MEQ/L Blood Urea Nitrogen 4 MG/DL Creatinine 0.62 MG/DL Estimat Glomerular Filtration 146 ML/MIN Rate Random Glucose 89 MG/DL Lactic Acid Level 2.2 mmol/L Calcium Level 9.2 MG/DL Total Bilirubin 1.1 MG/DL Aspartate Amino Transf 72 U/L (AST/SGOT) Alanine Aminotransferase 71 U/L (ALT/SGPT) Alkaline Phosphatase 136 U/L C-Reactive Protein 2.61 MG/DL Total Protein 8.0 GM/DL Albumin 3.5 GM/DL Lipase 178 U/L Urine Color YELLOW Urine Turbidity CLEAR Urine pH 6.5 Urine Specific [place] 1.016 Urine Protein 30 mg/dL Urine Glucose (UA) NEG mg/dL Urine Ketones TRACE mg/dL Urine Occult Blood NEG Urine Nitrite NEG Urine Bilirubin NEG Urine Urobilinogen 2.0 MG/DL Urine Leukocyte Esterase NEG Urine RBC LESS THAN 1 /hpf Urine WBC LESS THAN 1 /hpf Urine Mucus FEW /lpf Microscopic Urinalysis Comment CULT NOT INDICATED Urine Opiates Screen POS Urine Barbiturates Screen NEG Urine Amphetamines Screen NEG Urine Benzodiazepines Screen NEG Urine Cocaine Screen NEG Urine Cannabinoids Screen POS [facility] Medical Decision Making Medical Screen Exam Complete: Yes Emergency Medical Condition: Yes Medical Record Reviewed: Yes Differential Diagnosis Acute appendicitis, mesenteric adenitis, UTI Narrative Course 2:06 PM blood test suggestive of mild leukocytosis. Lactic acid was elevated. Patient was given IV fluid and IV Zosyn and vancomycin. CT scan did not show appendicitis but had some skin stranding and lymphadenopathy. Based on his lactic acidosis I will admit him. Awaiting for the residence call back. Procedures EKG Prior to Arrival: No Sepsis Criteria SIRS Criteria (2 or more): Heart rate over 90 Severe Sepsis (+one): Lactate >2 Diagnosis Primary Impression: Cellulitis Qualified Code: L03.311 - Cellulitis of abdominal wall Additional Impressions: disseminated staphylococcal infection SIRS (systemic inflammatory response syndrome) Admitting Information Admitting Physician Requests: Observation Scripts No Active Prescriptions or Reported Meds Saman Quinones MD May 11, 2017 14:09
[2017-05-11 14:37] LABS: BLOOD, URINE NEG (NEG); COMMENT (UR) CULT NOT INDICATED; CULTURE IF INDICATED CULT NOT INDICATED; GLUCOSE,URINE NEG (NEG); KETONE, URINE TRACE mg/dL (NEG); MUCUS URINE FEW /lpf (OCC); NITRITE,URINE NEG (NEG); PH, URINE 6.5 (5.0-8.5); URINE COLOR YELLOW (YELLW/STRAW)
[2017-05-11] MEDS ORDERED: LORazepam 2 MG/ML VIAL IV PUSH PRN ×4 (16:45)
[2017-05-11] MEDS ORDERED: FLUMAZENIL 0.5 MG/5 ML VIAL IV PUSH PRN (16:45)
[2017-05-11] MEDS ORDERED: LORazepam 2 MG TAB PO PRN (16:45)
[2017-05-11] MEDS ORDERED: LORazepam 1 MG TAB PO PRN (16:45)
[2017-05-11 17:00] VITALS: BP 158/101; PULSE 82; RESP 19; TEMP 100.8; O2SAT 99
--- NOTE | 2017-05-11 17:02 | HHI.HP ---
[facility] Service [facility] Primary Care Physician No Primary Care Physician Admission Diagnosis disseminated staphylococcal infection, abdominal pain Diagnoses: Chief Complaint: Right lower quadrant pain Travel History International Travel<30 Days: No Contact w/Intl Traveler <30 Da: No Traveled to Known Affected Are: No History of Present Illness Patient is a 36-year-old male currently in between homes admits to chronic alcoholism who about a week prior to admission complaining of pain on the abdominal discomfort most felt in the right lower quadrant and right hip area. Patient denies any fever or chills. Initially felt uncomfortable however increasing pain in the area. Today with increasing "excruciating pain" and cannot get comfortable. which prompted consult to ER patient. Patient also on examination of the skin has lateral open wound/scabs/source which he states that he gets on and off for the past 2 weeks. He however denies any fever or chills. Denies any urinary symptoms of dysuria or urgency or incontinence. Patient denies any diarrhea constipation melena or hematochezia. He does states that he had seizures related to alcohol withdrawal. Last episode was in January 2017. Patient admitted for further evaluation and management. Review of Systems Constitutional: DENIES: Diaphoretic episodes, Fatigue, Fever, Weight gain, Weight loss, Chills, Dizziness, Change in appetite, Night Sweats Endocrine: DENIES: Heat/cold intolerance, Polydipsia, Polyuria, Polyphagia Eyes: DENIES: Blurred vision, Diplopia, Eye inflammation, Eye pain, Vision loss , Photosensitivity, Double Vision Ears, nose, mouth, throat: DENIES: Tinnitus, Hearing loss, Vertigo, Nasal discharge, Oral lesions, Throat pain, Hoarseness, Ear Pain, Running Nose, Epistaxis, Sinus Pain, Toothache, Odynophagia Respiratory: DENIES: Apneas, Cough, Snoring, Wheezing, Hemoptysis, Sputum production, Shortness of breath Cardiovascular: DENIES: Chest pain, Palpitations, Syncope, Dyspnea on Exertion , PND, Lower Extremity Edema, Orthopnea, Claudication Gastrointestinal: COMPLAINS OF: Abdominal pain (see H&P) Genitourinary: DENIES: Sexual dysfunction, Urinary frequency, Urinary incontinence, Urgency, Hematuria, Dysuria, Nocturia, Penile Discharge, Testicular Pain, Testicular Swelling Musculoskeletal: DENIES: Joint pain, Muscle aches, Stiffness, Joint Swelling, Back pain, Neck pain Integumentary: DENIES: Abnormal pigmentation, Nail changes, Pruritus, Rash Hematologic/lymphatic: DENIES: Bruising, Lymphadenopathy Immunologic/allergic: DENIES: Eczema, Urticaria Neurologic: DENIES: Abnormal gait, Headache, Localized weakness, Paresthesias, Seizures, Speech Problems, Tremor, Poor Balance Psychiatric: DENIES: Anxiety, Confusion, Mood changes, Depression, Hallucinations, Agitation, Suicidal Ideation, Homicidal Ideation, Delusions Past Family Social History Past Medical History History of seizure related to alcohol withdrawal Denies any history of hypertension diabetes type 2, coronary artery disease, cerebrovascular accidents. Chronic alcoholism Past Surgical History Right forearm surgery secondary to trauma many years ago. Reported Medications None Allergies: Coded Allergies: No Known Allergies (Unverified , 05/11/17) Family History Positive history of hypertension the family, history of heart failure deformity , history of chronic alcoholism in the family Social History Smokes 1 pack a day 4 packs beer and vodka on a daily basis Occasionally smokes weed Physical Exam Vital Signs Vital Signs Date Time Temp Pulse Resp B/P Pulse Ox O2 Delivery O2 Flow Rate FiO2 05/11/17 14:04 84 16 124/87 98 05/11/17 14:04 16 05/11/17 14:04 16 05/11/17 12:51 Room Air 05/11/17 11:39 99.6 118 20 126/74 98 Room Air Physical Exam GENERAL: Unkempt, in no apparent distress. SKIN: Multiple dry scabs open wounds dry both upper and lower extremity and abdomen, abdomen, bilateral hips HEAD: Atraumatic. Normocephalic. No temporal or scalp tenderness. EYES: Pupils equal round and reactive. Extraocular motions intact. No scleral icterus. No injection or drainage. ENT: Nose without bleeding, Airway patent. NECK: Trachea midline. No JVD or lymphadenopathy. Supple, nontender, no meningeal signs. CARDIOVASCULAR: Regular rate and rhythm without murmurs, gallops, or rubs. RESPIRATORY: Clear to auscultation. Breath sounds equal bilaterally. No wheezes , rales, or rhonchi. GASTROINTESTINAL: Abdomen soft, flabby, with abdominal striae, tenderness on palpation of the right lower quadrant area superficial, marked erythema of the abdominal wall MUSCULOSKELETAL: Extremities without clubbing, cyanosis, or edema. No calf tenderness. Negative Homans sign bilaterally. right hip/pelvic area- with swelling and tenderness and erythema on palpation right hip flexion limited by swelling and pain NEUROLOGICAL: Awake and alert. Cranial nerves II through XII intact. Motor and sensory grossly within normal limits. Five out of 5 muscle strength in all muscle groups. Normal speech. Laboratory Laboratory Tests Test 05/11/17 05/11/17 12:53 13:58 White Blood Count 11.2 Red Blood Count 4.64 Hemoglobin 14.7 Hematocrit 44.2 Mean Corpuscular Volume 95.2 Mean Corpuscular Hemoglobin 31.8 Mean Corpuscular Hemoglobin 33.4 Concent Red Cell Distribution Width 13.5 Platelet Count 143 Mean Platelet Volume 7.3 Neutrophils (%) (Auto) 80.8 Lymphocytes (%) (Auto) 6.5 Monocytes (%) (Auto) 12.3 Eosinophils (%) (Auto) 0.2 Basophils (%) (Auto) 0.2 Neutrophils # (Auto) 9.0 Lymphocytes # (Auto) 0.7 Monocytes # (Auto) 1.4 Eosinophils # (Auto) 0.0 Basophils # (Auto) 0.0 CBC Comment DIFF FINAL Differential Comment Sodium Level 131 Potassium Level 4.2 Chloride Level 94 Carbon Dioxide Level 29.0 Anion Gap 8 Blood Urea Nitrogen 4 Creatinine 0.62 Estimat Glomerular Filtration 146 Rate Random Glucose 89 Lactic Acid Level 2.2 Calcium Level 9.2 Total Bilirubin 1.1 Aspartate Amino Transf 72 (AST/SGOT) Alanine Aminotransferase 71 (ALT/SGPT) Alkaline Phosphatase 136 Total Protein 8.0 Albumin 3.5 Lipase 178 Urine Color YELLOW Urine Turbidity CLEAR Urine pH 6.5 Urine Specific [place] 1.016 Urine Protein 30 Urine Glucose (UA) NEG Urine Ketones TRACE Urine Occult Blood NEG Urine Nitrite NEG Urine Bilirubin NEG Urine Urobilinogen 2.0 Urine Leukocyte Esterase NEG Urine RBC LESS THAN 1 Urine WBC LESS THAN 1 Urine Mucus FEW Microscopic Urinalysis Comment CULT NOT INDICATED Date/Time Procedure Status Source Growth 05/11/17 13:10 Aerobic Blood Culture Received Blood Peripheral Pending 05/11/17 13:10 Anaerobic Blood Culture Received Blood Peripheral Pending Result Diagram: 05/11/17 1253 05/11/17 1253 Imaging Last Impressions Abdomen/Pelvis CT 05/11/17 1243 Signed Impressions: Service Date/Time: Thursday, May 11, 2017 13:11 - CONCLUSION: 1. Skin thickening and subcutaneous inflammatory changes along the right lateral pelvis , right inguinal region, and right lateral gluteal region. This could represent a severe cellulitis. There is no subcutaneous abscess. An enlarged right inguinal lymph node is present likely representing reactive lymphadenopathy. 2. Nonacute findings include hepatomegaly with severe steatosis and cholelithiasis. Marty Franco MD Septic Shock Reassessment Heart: Regular rate and rhythm Lungs: Clear Skin: Warm Peripheral Pulses: Bounding Right Radial Assessment and Plan Assessment and Plan 36-year-old male with Sepsis due to ABdominal wall and right pelvic/iliac cellulitis with multiple skin open wounds- history of staph infections. Started on IV antibiotics- Vancomycin get ESR, CRP if elevated significantly need to r/o OM Chronic alcoholism start patient on=CIWA protocol. Start patient on IV multivitamins thiamine. Patient counseled. Follow LFTs. History of alcohol withdrawal seizures.. On above protocol. PPI for GI prophylaxis Case management consult for DC planning.- [facility] referral Discussed Condition With Patient Physician Certification 2 Midnight Certification Type: Admission for Inpatient Services Order for Inpatient Services The services are ordered in accordance with Medicare regulations or non- Medicare payer requirements, as applicable. In the case of services not specified as inpatient-only, they are appropriately provided as inpatient services in accordance with the 2-midnight benchmark. Estimated LOS (days): 3 days is the estimated time the patient will need to remain in the hospital, assuming treatment plan goals are met and no additional complications. Post-Hospital Plan: Not yet determined Rebecca King MD May 11, 2017 17:02
[2017-05-11] MEDS: SODIUM CHLOR 0.9% 1000 ML INJ 1,000 ML IV SCH (17:18)
[2017-05-11] MEDS ORDERED: chlordiazePOXIDE 25 MG CAP PO STA (17:18)
[2017-05-11] MEDS: ENOXAPARIN SODIUM 30 MG/0.3 ML SYRINGE SQ SCH (17:36)
[2017-05-11 19:03] LABS: AMPHETAMINE, URINE NEG (NEG); BARBITURATES, URINE NEG (NEG); COCAINE, URINE NEG (NEG)
[2017-05-11 20:00] VITALS: BP 138/83; PULSE 87; RESP 20; TEMP 100.1; O2SAT 97
[2017-05-12] VITALS: BP 144/98; PULSE 87; RESP 20; TEMP 99.9; O2SAT 96
[2017-05-12] MEDS: VANCOMYCIN INJ 1,000 MG in SODIUM CHLOR 0.9% 250 ML INJ 250 ML IV SCH ×2 (01:32→12:50)
[2017-05-12] MEDS: SODIUM CHLOR 0.9% 1000 ML INJ 1,000 ML IV SCH ×2 (05:03→16:09)
[2017-05-12] MEDS: THIAMINE HCL 100 MG TAB PO SCH (07:44)
[2017-05-12] MEDS: FOLIC ACID 1 MG TAB PO SCH (07:44)
[2017-05-12] MEDS: MULTIVITAMINS/MINERALS THERAPEUTIC TAB PO SCH (07:44)
[2017-05-12 08:00] VITALS: BP 126/89; PULSE 81; RESP 17; TEMP 99.2; O2SAT 98
--- NOTE | 2017-05-12 08:07 | HHI.PR ---
Subjective Remarks complains of pain- most on the right hip with limitation in leg elevation + low grade fever Objective Vitals Vital Signs Date Time Temp Pulse Resp B/P Pulse Ox O2 Delivery O2 Flow Rate FiO2 05/12/17 00:00 99.9 87 20 144/98 96 05/11/17 20:00 100.1 87 20 138/83 97 05/11/17 17:00 100.8 82 19 158/101 99 05/11/17 14:04 84 16 124/87 98 05/11/17 14:04 16 05/11/17 14:04 16 05/11/17 12:51 Room Air 05/11/17 11:39 99.6 118 20 126/74 98 Room Air I/O 05/11/17 05/11/17 05/11/17 05/12/17 05/12/17 05/12/17 07:00 15:00 23:00 07:00 15:00 23:00 Intake Total 906 ml 720 ml Output Total 900 ml Balance 906 ml -180 ml Intake Oral 600 ml 720 ml IV Total 306 ml Output Urine Total 900 ml # Voids 1 Result Diagram: 05/11/17 1253 05/11/17 1253 Imaging Last Impressions Abdomen/Pelvis CT 05/11/17 1243 Signed Impressions: Service Date/Time: Thursday, May 11, 2017 13:11 - CONCLUSION: 1. Skin thickening and subcutaneous inflammatory changes along the right lateral pelvis , right inguinal region, and right lateral gluteal region. This could represent a severe cellulitis. There is no subcutaneous abscess. An enlarged right inguinal lymph node is present likely representing reactive lymphadenopathy. 2. Nonacute findings include hepatomegaly with severe steatosis and cholelithiasis. Marty Franco MD Objective Remarks skin- with multiple open superficial wounds- hamilton size on both UE and LE, abdomen, hips- mostly dry tenderness on palpation and swelling of the right hip anicteric lungs clear regular rhythm abdomen soft, nontender Right LE - right hip flexion limited by swelling and pain- right pelvic area- +swelling, erythema and tenderness on palpation no calf tenderness, no limitation in ROM of the knee and foot gait- steady A/P Assessment and Plan 36-year-old male with Sepsis due to ABdominal wall and right pelvic/iliac cellulitis with multiple skin open wounds- history of staph infections.- on IV antibiotic- Vancomycin ESR, CRP - ? need to r/o OM ? ceretec study get ID consult for recommendation Lortab prn for pain q 4 PT consult Chronic alcoholism - on=CIWA protocol. on IV multivitamins thiamine. Patient counseled. Follow LFTs. History of alcohol withdrawal seizures.. On above protocol. Substance abuse- counselled PPI for GI prophylaxis. Lovenox for DVT prophylaxis Case management consult for DC planning.- [facility] referral Rebecca King MD May 12, 2017 08:07
[2017-05-12] MEDS: ACETAMINOPHEN/HYDROcodone 325 MG/5 MG TAB PO PRN (09:06)
[2017-05-12 12:00] VITALS: BP 125/79; PULSE 92; RESP 17; TEMP 99.6; O2SAT 97
[2017-05-12 16:00] VITALS: BP 117/77; PULSE 86; RESP 18; TEMP 99.8; O2SAT 98
[2017-05-12] MEDS: ENOXAPARIN SODIUM 30 MG/0.3 ML SYRINGE SQ SCH (17:00)
[2017-05-12 20:00] VITALS: BP 128/87; PULSE 86; RESP 20; TEMP 100; O2SAT 96
--- NOTE | 2017-05-12 20:02 | PD.ID.CON ---
History of Present Illness Service ID Consult Requested By Dr King Reason for Consult disseminated staph infx Primary Care Physician No Primary Care Physician Diagnoses: History of Present Illness 36 yo male , ETOH, psoriasis developpere d R hip pain x few days Worse with any kind of movement s or touch Denies preceding trauma denies fever, chills night sweats MInimal leukocytosis CT showed Skin thickening and subcutaneous inflammatory changes along the right lateral pelvis, right inguinal region, and right lateral gluteal region, this could represent a severe cellulitis, no subcutaneous abscess, reactive lymphadenopathy Started on vancomycin Review of Systems Except as stated in HPI: all other systems reviewed are Neg Past Family Social History Allergies: Coded Allergies: No Known Allergies (Unverified , 05/11/17) Past Medical History History of seizure related to alcohol withdrawal Denies any history of hypertension diabetes type 2, coronary artery disease, cerebrovascular accidents. Chronic alcoholism Past Surgical History Right forearm surgery secondary to trauma many years ago. Active Ordered Medications Medications where reviewed in EMR Antibiotics Include: vancomycin Family History Non-Contributory. Social History ETOH heavy 12-20 beers daily no tobacco occ MJ no IVDU Physical Exam Vital Signs Vital Signs Date Time Temp Pulse Resp B/P Pulse Ox O2 Delivery O2 Flow Rate FiO2 05/12/17 16:00 99.8 86 18 117/77 98 05/12/17 12:00 99.6 92 17 125/79 97 05/12/17 08:00 99.2 81 17 126/89 98 05/12/17 00:00 99.9 87 20 144/98 96 05/11/17 20:00 100.1 87 20 138/83 97 Physical Exam CONSTITUTIONAL/GENERAL: This is an adequately nourished patient, in no apparent distress. TUBES/LINES/DRAINS: SKIN: No jaundice, rashes, + disseminated psoriatic lesions. Skin temperature appropriate. Not diaphoretic. Buttocks with excoriated lesions, some old pustulas no abscesses HEAD: Atraumatic. Normocephalic. EYES: Pupils equal and round and reactive. Extraocular motions intact. No scleral icterus. No injection or drainage. Fundi not examined. ENT: Hearing grossly normal. Nose without bleeding or purulent drainage. Throat without visible erythema, exudates, masses, or lesions. NECK: Trachea midline. Supple, nontender. No palpable thyroid enlargement or nodularity. CARDIOVASCULAR: Regular rate and rhythm without murmurs, gallops, or rubs. No JVD. Peripheral pulses symmetric. RESPIRATORY/CHEST: Symmetric, unlabored respirations. Clear to auscultation. Breath sounds equal bilaterally. No wheezes, rales, or rhonchi. GASTROINTESTINAL: Abdomen soft, non-tender, nondistended. No hepato-splenomegaly , or palpable masses. No guarding. Bowel sounds present. GENITOURINARY: Without palpable bladder distension. MUSCULOSKELETAL: Extremities without clubbing, cyanosis, or edema. No joint tenderness or effusion noted. No calf tenderness. No mottling or clubbing. STATUS LOCALIS: R hip ROM decreased 2/2 pain tender to aplpation in R inguinal are, + some edema, induration, no erythema no fluctuanc LYMPHATICS: No palpable cervical or supraclavicular adenopathy. + inguinal LAD on the R NEUROLOGICAL: Awake and alert. Motor and sensory grossly within normal limits. Follows commands. Clear speech. Moves all extremities. PSYCHIATRIC: No obvious anxiety/depression. no apparent hallucinations or other psychotic thought process. Laboratory Laboratory Tests Test 05/12/17 03:23 Lactic Acid Level 1.1 Date/Time Procedure Status Source Growth 05/11/17 13:10 Aerobic Blood Culture - Preliminary Resulted Blood Peripheral NO GROWTH IN 1 DAY 05/11/17 13:10 Anaerobic Blood Culture - Preliminary Resulted Blood Peripheral NO GROWTH IN 1 DAY Result Diagram: 05/11/17 1253 05/11/17 1253 Imaging Last Impressions Abdomen/Pelvis CT 05/11/17 1243 Signed Impressions: Service Date/Time: Thursday, May 11, 2017 13:11 - CONCLUSION: 1. Skin thickening and subcutaneous inflammatory changes along the right lateral pelvis , right inguinal region, and right lateral gluteal region. This could represent a severe cellulitis. There is no subcutaneous abscess. An enlarged right inguinal lymph node is present likely representing reactive lymphadenopathy. 2. Nonacute findings include hepatomegaly with severe steatosis and cholelithiasis. Marty Franco MD Assessment and Plan Assessment and Plan R glutal/ inguinal infection ? hip infection Psorialysi, no actively infected leseion Hepatosteatosis ETOH abuse - will obtain MRI - cont vancomuycin for now Macey Brumfield MD May 12, 2017 20:01
[2017-05-13] VITALS: BP 134/94; PULSE 87; RESP 20; TEMP 99; O2SAT 97
[2017-05-13] MEDS: VANCOMYCIN INJ 1,000 MG in SODIUM CHLOR 0.9% 250 ML INJ 250 ML IV SCH ×2 (00:33→12:57)
[2017-05-13] MEDS: SODIUM CHLOR 0.9% 1000 ML INJ 1,000 ML IV SCH ×2 (05:35→16:40)
[2017-05-13] MEDS ORDERED: Vancomycin Consult Pharmacy 1 EA OTHER SCH (06:30)
[2017-05-13 08:00] VITALS: BP 133/93; PULSE 70; RESP 18; TEMP 99; O2SAT 99
[2017-05-13] MEDS: ACETAMINOPHEN/HYDROcodone 325 MG/5 MG TAB PO PRN ×4 (08:55→22:15)
[2017-05-13] MEDS: FOLIC ACID 1 MG TAB PO SCH (08:55)
[2017-05-13] MEDS: THIAMINE HCL 100 MG TAB PO SCH (08:55)
[2017-05-13] MEDS: MULTIVITAMINS/MINERALS THERAPEUTIC TAB PO SCH (08:55)
[2017-05-13] MEDS ORDERED: GADODIAMIDE PF 287 MG/ML 10 ML VIAL (for RAD MRI) IV ONE (10:10)
[2017-05-13 12:00] VITALS: BP 121/80; PULSE 80; RESP 19; TEMP 98; O2SAT 97
--- NOTE | 2017-05-13 12:22 | RADRPT ---
EXAM DATE/TIME: 05/13/2017 09:20 [place] COMPARISON: CT ABDOMEN & PELVIS W/O CONTRAST, May 11, 2017, 13:11. INDICATIONS : Right hip pain since with no injury. CONTRAST: 17 cc Omniscan (gadodiamide) IV MEDICAL HISTORY : Hypertension. Seizures. Substance abuse SURGICAL HISTORY : None. ENCOUNTER: Initial ACUITY: 3 day PAIN SCORE: 6/10 LOCATION: Rt hip TECHNIQUE: Multiplanar, multisequence MRI examination was performed without contrast and after the intravenous a dministration of gadolinium. FINDINGS: Minimal motion artifact is present. There is no significant joint effusion evident. There is no robert dence for gris or iliopsoas abscess. There is induration of the anterior thigh above the hip confined to predominantly the soft tissues. This induration does extend into the inguinal canal. There is a very small apparent fluid collection evident measuring approximately 20 mm x 3 mm. This m ay be the source of pain. There is no evidence for an osteomyelitis. There is no evidence of spread into the hip joint. CONCLUSION: 1. Induration of the anterior right thigh associated with an apparent very small fluid collection th at does show an intense enhancement, probably representing superficial cellulitis. This does appear to track into the inguinal region at the level of the common femoral artery and vein. The bulk of th is was described on the CT scan of 05/11/2017. 2. Minimal bilateral inguinal adenopathy is present superficially as well. Bradley Avitia MD FACR on May 13, 2017 at 12:00 Board Certified Radiologist. This report was verified electronically.
[2017-05-13] MEDS ORDERED: PHARMACY ORDERED LAB ONE (13:45)
[2017-05-13 16:00] VITALS: BP 119/80; PULSE 83; RESP 16; TEMP 98.6; O2SAT 96
--- NOTE | 2017-05-13 17:14 | HHI.PR ---
Subjective Remarks c/o pain in the right hip going into inguinal canal having low grade fevers Objective Vitals Vital Signs Date Time Temp Pulse Resp B/P Pulse Ox O2 Delivery O2 Flow Rate FiO2 05/13/17 16:00 98.6 83 16 119/80 96 05/13/17 16:00 98.6 83 16 119/80 96 05/13/17 12:00 98.0 80 19 121/80 97 05/13/17 08:00 99.0 70 18 133/93 99 05/13/17 00:00 99.0 87 20 134/94 97 05/12/17 20:00 100.0 86 20 128/87 96 I/O 05/12/17 05/12/17 05/12/17 05/13/17 05/13/17 05/13/17 07:00 15:00 23:00 07:00 15:00 23:00 Intake Total 720 ml 2087 ml 540 ml 974 ml 532 ml Output Total 900 ml 650 ml 850 ml 450 ml Balance -180 ml 1437 ml -310 ml 524 ml 532 ml Intake Oral 720 ml 720 ml 240 ml 390 ml 480 ml IV Total 1367 ml 300 ml 584 ml 52 ml Output Urine Total 900 ml 650 ml 850 ml 450 ml # Voids 3 4 # Bowel Movements 2 0 0 0 Result Diagram: 05/11/17 1253 05/11/17 1253 Imaging Last Impressions Hip MRI 05/13/17 0000 Signed Impressions: Service Date/Time: Saturday, May 13, 2017 09:20 - CONCLUSION: 1. Induration of the anterior right thigh associated with an apparent very small fluid collection that does show an intense enhancement, probably representing superficial cellulitis. This does appear to track into the inguinal region at the level of the common femoral artery and vein. The bulk of this was described on the CT scan of 05/11/2017. 2. Minimal bilateral inguinal adenopathy is present superficially as well. Bradley Avitia MD FACR Abdomen/Pelvis CT 05/11/17 1243 Signed Impressions: Service Date/Time: Thursday, May 11, 2017 13:11 - CONCLUSION: 1. Skin thickening and subcutaneous inflammatory changes along the right lateral pelvis , right inguinal region, and right lateral gluteal region. This could represent a severe cellulitis. There is no subcutaneous abscess. An enlarged right inguinal lymph node is present likely representing reactive lymphadenopathy. 2. Nonacute findings include hepatomegaly with severe steatosis and cholelithiasis. Marty Franco MD Objective Remarks GENERAL: Thin, well nourished patient SKIN: There are multiple open superficial wounds nickel size on both upper and lower extremities, abdomen, hips mostly dry. There is tenderness to palpation and swelling of the right hip and there is an indurated tender inflammation in the inguinal region. There are multiple psoriatic lessions in the skin, several in the lower extremities and buttocks. HEAD: Normocephalic. EYES: No scleral icterus. No injection or drainage. NECK: Supple, trachea midline. No JVD or lymphadenopathy. CARDIOVASCULAR: Regular rate and rhythm without murmurs, gallops, or rubs. RESPIRATORY: Breath sounds equal bilaterally. No accessory muscle use. GASTROINTESTINAL: Abdomen soft, non-tender, nondistended. MUSCULOSKELETAL: No cyanosis, or edema. BACK: Nontender without obvious deformity. No CVA tenderness. Medications and IVs Current Medications Medications (Trade) Dose Ordered Sig/Latrell Route Start Time Stop Time Status Last Admin Sodium Chloride 2 ml 2 ml UNSCH PRN IV FLUSH 05/11/17 12:45 (NS 1000 ml Inj) 1,000 ml @ 84 mls/hr [id number] IV 05/11/17 17:00 05/13/17 05:35 (Romazicon Inj) 0.2 mg Q1M PRN IV PUSH 05/11/17 16:45 (Ativan) 1 mg Q4H PRN PO 05/11/17 16:45 (Ativan Inj) 1 mg Q4H PRN IV PUSH 05/11/17 16:45 (Ativan) 2 mg Q2H PRN PO 05/11/17 16:45 (Ativan Inj) 2 mg Q2H PRN IV PUSH 05/11/17 16:45 (Ativan Inj) 2 mg Q1H PRN IV PUSH 05/11/17 16:45 (Ativan Inj) 2 mg Q15M PRN IV PUSH 05/11/17 16:45 (Folate) 1 mg DAILY PO 05/12/17 09:00 05/17/17 08:59 05/14/17 07:25 (Vitamin B1) 100 mg DAILY PO 05/12/17 09:00 05/14/17 07:25 (Theragran M Tab) 1 tab DAILY PO 05/12/17 09:00 05/17/17 08:59 05/14/17 07:25 (Lovenox Inj) 30 mg Q24H SQ 05/11/17 18:00 05/13/17 17:41 Acetaminophen/ Hydrocodone Bitart 1 tab 1 tab Q4H PRN PO 05/12/17 08:00 05/14/17 07:25 Pharmacy Profile Note 0 ml @ 0 mls/hr UNSCH OTHER 05/13/17 06:30 (Vancomycin Inj/ NS 500 ml Inj) 515 ml @ 257.5 mls/ hr Q12H IV 05/13/17 21:00 05/14/17 07:25 Miscellaneous Information SPECIFIC LAB TO BE [place]... ONCE ONCE .XX 05/15/17 08:45 05/15/17 08:46 (Zosyn 4.5 Gm Premix) 100 ml @ 200 mls/hr Q6H IV 05/13/17 20:00 05/14/17 07:24 A/P Problem List: (1) Sepsis affecting skin ICD Code: A41.9 Status: Acute Plan: Present admission. Patient with multiple skin open wounds and history of staph infections. The patient was started on IV antibiotics, currently on IV vancomycin ID consulted Continue pain control with [place]. MRI showed induration of the anterior right thigh associated with an apparent very small fluid collection that shows an intense enhancement, probably representing superficial cellulitis. This appears to track into the inguinal region at the level of the common femoral artery and vein. Consult general surgery for evaluation for incision and drainage. Continue to follow up blood cultures, blood cultures negative to date. (2) Cellulitis ICD Code: L03.90 Status: Acute Plan: As above. (3) Alcohol abuse ICD Code: F10.10 Status: Acute Plan: Continue CIWA protocol. No evidence of alcohol withdrawal at this time. Continue multivitamins and thiamine. Patient counseled for cessation. (4) Substance abuse ICD Code: F19.10 Status: Acute Plan: The patient has been counseled against use of illegal substances. Assessment and Plan VT prophylaxis: SCDs, Lovenox subcutaneously. Discharge Planning Continue to monitor in the medical floor. Pending general surgery consult. Problem Qualifiers (1) Cellulitis: Qualified Code: L03.311 - Cellulitis of abdominal wall Arnulfo Schultzo MD May 13, 2017 17:14
[2017-05-13] MEDS: ENOXAPARIN SODIUM 30 MG/0.3 ML SYRINGE SQ SCH (17:41)
[2017-05-13 18:12] LABS: AUTOMATED NEUTROPHIL # 3.8 TH/MM3 (1.8-7.7); BASOPHIL % 0.6 % (0.0-2.0); EOSINOPHIL # 0.1 TH/MM3 (0-0.4); EOSINOPHIL % 1.5 % (0.0-4.0); HEMATOCRIT 41.1 % (39.0-51.0); HEMO FLAGS DIFF FINAL; LYMPH % 21.4 % (9.0-44.0); LYMPHOCYTE # 1.4 TH/MM3 (1.0-4.8); MEAN CELL VOLUME 95.7 FL (80.0-100.0); MEAN CORPUSCULAR HEMOGLOBIN 31.7 PG (27.0-34.0); MEAN CORPUSCULAR HGB CONC 33.1 % (32.0-36.0); MONO % 16.4 % (0.0-8.0); NEUT % 60.1 % (16.0-70.0); PLATELET COUNT 143 TH/MM3 (150-450); RED BLOOD COUNT 4.29 MIL/MM3 (4.50-5.90); RED CELL DISTRIBUTION WIDTH 13.3 % (11.6-17.2); WHITE BLOOD COUNT 6.4 TH/MM3 (4.0-11.0)
[2017-05-13 18:33] LABS: ALKALINE PHOSPHATASE 118 U/L (45-117); ALT (GPT) 52 U/L (12-78); ANION GAP 8 MEQ/L (5-15); AST (GOT) 44 U/L (15-37); BICARBONATE 27.9 MEQ/L (21.0-32.0); BLOOD UREA NITROGEN 6 MG/DL (7-18); CHLORIDE 99 MEQ/L (98-107); GLOMERULAR FILTRATION RATE 187 ML/MIN (>89); MAGNESIUM 1.8 MG/DL (1.5-2.5); POTASSIUM 3.3 MEQ/L (3.5-5.1); SODIUM (NA) 135 MEQ/L (136-145); TOTAL BILIRUBIN ADULT 0.8 MG/DL (0.2-1.0)
[2017-05-13 20:00] VITALS: BP 128/95; PULSE 90; RESP 19; TEMP 98.5; O2SAT 97
--- NOTE | 2017-05-13 21:05 | HHI.IDPN ---
Subjective Subjective Remarks co pain in the R groin, abd area + fever up to 100 Antibiotics zosyn added today vanco Allergies: Coded Allergies: No Known Allergies (Unverified , 05/11/17) Objective . Vital Signs Date Time Temp Pulse Resp B/P Pulse Ox O2 Delivery O2 Flow Rate FiO2 05/13/17 16:00 98.6 83 16 119/80 96 05/13/17 16:00 98.6 83 16 119/80 96 05/13/17 12:00 98.0 80 19 121/80 97 05/13/17 08:00 99.0 70 18 133/93 99 05/13/17 00:00 99.0 87 20 134/94 97 05/12/17 05/12/17 05/13/17 15:00 23:00 07:00 Intake Total 2087 ml 540 ml 974 ml Output Total 650 ml 850 ml 450 ml Balance 1437 ml -310 ml 524 ml Intake Oral 720 ml 240 ml 390 ml IV Total 1367 ml 300 ml 584 ml Output Urine Total 650 ml 850 ml 450 ml # Voids 3 # Bowel Movements 2 0 0 . Laboratory Tests Test 05/13/17 17:57 White Blood Count 6.4 TH/MM3 Red Blood Count 4.29 MIL/MM3 Hemoglobin 13.6 GM/DL Hematocrit 41.1 % Mean Corpuscular Volume 95.7 FL Mean Corpuscular Hemoglobin 31.7 PG Mean Corpuscular Hemoglobin 33.1 % Concent Red Cell Distribution Width 13.3 % Platelet Count 143 TH/MM3 Mean Platelet Volume 8.2 FL Neutrophils (%) (Auto) 60.1 % Lymphocytes (%) (Auto) 21.4 % Monocytes (%) (Auto) 16.4 % Eosinophils (%) (Auto) 1.5 % Basophils (%) (Auto) 0.6 % Neutrophils # (Auto) 3.8 TH/MM3 Lymphocytes # (Auto) 1.4 TH/MM3 Monocytes # (Auto) 1.1 TH/MM3 Eosinophils # (Auto) 0.1 TH/MM3 Basophils # (Auto) 0.0 TH/MM3 CBC Comment DIFF FINAL Differential Comment Laboratory Tests Test 05/12/17 05/13/17 03:23 17:57 Lactic Acid Level 1.1 mmol/L Sodium Level 135 MEQ/L Potassium Level 3.3 MEQ/L Chloride Level 99 MEQ/L Carbon Dioxide Level 27.9 MEQ/L Anion Gap 8 MEQ/L Blood Urea Nitrogen 6 MG/DL Creatinine 0.50 MG/DL Estimat Glomerular Filtration 187 ML/MIN Rate Random Glucose 93 MG/DL Calcium Level 8.5 MG/DL Phosphorus Level 4.1 MG/DL Magnesium Level 1.8 MG/DL Total Bilirubin 0.8 MG/DL Aspartate Amino Transf 44 U/L (AST/SGOT) Alanine Aminotransferase 52 U/L (ALT/SGPT) Alkaline Phosphatase 118 U/L Total Protein 6.7 GM/DL Albumin 2.7 GM/DL Microbiology Date/Time Procedure Status Source Growth 05/11/17 12:50 Aerobic Blood Culture - Preliminary Resulted Blood Peripheral NO GROWTH IN 2 DAYS 05/11/17 12:50 Anaerobic Blood Culture - Preliminary Resulted Blood Peripheral NO GROWTH IN 2 DAYS 05/11/17 13:10 Aerobic Blood Culture - Preliminary Resulted Blood Peripheral NO GROWTH IN 2 DAYS 05/11/17 13:10 Anaerobic Blood Culture - Preliminary Resulted Blood Peripheral NO GROWTH IN 2 DAYS Imaging Last Impressions Hip MRI 05/13/17 0000 Signed Impressions: Service Date/Time: Saturday, May 13, 2017 09:20 - CONCLUSION: 1. Induration of the anterior right thigh associated with an apparent very small fluid collection that does show an intense enhancement, probably representing superficial cellulitis. This does appear to track into the inguinal region at the level of the common femoral artery and vein. The bulk of this was described on the CT scan of 05/11/2017. 2. Minimal bilateral inguinal adenopathy is present superficially as well. Bradley Avitia MD FACR Abdomen/Pelvis CT 05/11/17 1243 Signed Impressions: Service Date/Time: Thursday, May 11, 2017 13:11 - CONCLUSION: 1. Skin thickening and subcutaneous inflammatory changes along the right lateral pelvis , right inguinal region, and right lateral gluteal region. This could represent a severe cellulitis. There is no subcutaneous abscess. An enlarged right inguinal lymph node is present likely representing reactive lymphadenopathy. 2. Nonacute findings include hepatomegaly with severe steatosis and cholelithiasis. Marty Franco MD Physical Exam CONSTITUTIONAL/GENERAL: This is an adequately nourished patient, in no apparent distress. TUBES/LINES/DRAINS: SKIN: No jaundice, rashes, + disseminated psoriatic lesions. Skin temperature appropriate. Not diaphoretic. Buttocks with excoriated lesions, some old pustulas , but no cellulitis no abscesses HEAD: Atraumatic. Normocephalic. EYES: Pupils equal and round and reactive. Extraocular motions intact. No scleral icterus. No injection or drainage. Fundi not examined. ENT: Hearing grossly normal. Nose without bleeding or purulent drainage. Throat without visible erythema, exudates, masses, or lesions. NECK: Trachea midline. Supple, nontender. No palpable thyroid enlargement or nodularity. CARDIOVASCULAR: Regular rate and rhythm without murmurs, gallops, or rubs. No JVD. Peripheral pulses symmetric. RESPIRATORY/CHEST: Symmetric, unlabored respirations. Clear to auscultation. Breath sounds equal bilaterally. No wheezes, rales, or rhonchi. GASTROINTESTINAL: Abdomen soft, non-tender, nondistended. No hepato-splenomegaly , or palpable masses. No guarding. Bowel sounds present. GENITOURINARY: Without palpable bladder distension. MUSCULOSKELETAL: Extremities without clubbing, cyanosis, or edema. No joint tenderness or effusion noted. No calf tenderness. No mottling or clubbing. STATUS LOCALIS: R hip ROM decreased 2/2 pain tender to aplpation in R inguinal are, + some edema, induration right in the groin, very tender to palpation no erythema no fluctuance No edema, no erythem of buttock LYMPHATICS: No palpable cervical or supraclavicular adenopathy. + inguinal LAD on the R NEUROLOGICAL: Awake and alert. Motor and sensory grossly within normal limits. Follows commands. Clear speech. Moves all extremities. PSYCHIATRIC: No obvious anxiety/depression. no apparent hallucinations or other psychotic thought process. Assessment & Plan Remarks R glutal/ inguinal infection no e/o hip infection Induration of the anterior right thigh associated with an apparent very small fluid collection that does show an intense enhancement, probably representing superficial cellulitis. This does appear to track into the inguinal region at the level of the common femoral artery and vein. Psorialysi, no actively infected leseion Hepatosteatosis ETOH abuse - cont vancomycin , cont zosyn - ? CT guided aspiration Macey Brumfield MD May 13, 2017 21:05
[2017-05-13] MEDS: VANCOMYCIN INJ 1,500 MG in SODIUM CHLORID 0.9% 500 ML INJ 500 ML IV SCH (22:12)
[2017-05-14] VITALS: BP 125/85; PULSE 71; RESP 20; TEMP 97.9; O2SAT 95
[2017-05-14] MEDS: PIPERACIL-TAZO 4.5 GM PREMIX 100 ML IV SCH ×5 (01:00→20:00)
[2017-05-14 04:00] VITALS: BP 136/94; PULSE 70; RESP 19; TEMP 96.7; O2SAT 97
[2017-05-14] MEDS: SODIUM CHLOR 0.9% 1000 ML INJ 1,000 ML IV SCH ×2 (04:35→18:28)
[2017-05-14 05:39] LABS: AUTOMATED NEUTROPHIL # 3.3 TH/MM3 (1.8-7.7); BASOPHIL # 0.1 TH/MM3 (0-0.2); BASOPHIL % 0.9 % (0.0-2.0); EOSINOPHIL # 0.1 TH/MM3 (0-0.4); EOSINOPHIL % 2.2 % (0.0-4.0); HEMATOCRIT 38.4 % (39.0-51.0); HEMO FLAGS DIFF FINAL; LYMPH % 21.2 % (9.0-44.0); LYMPHOCYTE # 1.2 TH/MM3 (1.0-4.8); MEAN CELL VOLUME 95.5 FL (80.0-100.0); MEAN CORPUSCULAR HEMOGLOBIN 32.5 PG (27.0-34.0); MONO % 15.9 % (0.0-8.0); NEUT % 59.8 % (16.0-70.0); PLATELET COUNT 142 TH/MM3 (150-450); RED BLOOD COUNT 4.02 MIL/MM3 (4.50-5.90); RED CELL DISTRIBUTION WIDTH 13.1 % (11.6-17.2); WHITE BLOOD COUNT 5.6 TH/MM3 (4.0-11.0)
[2017-05-14 05:56] LABS: ANION GAP 6 MEQ/L (5-15); BICARBONATE 29.7 MEQ/L (21.0-32.0); BLOOD UREA NITROGEN 5 MG/DL (7-18); CHLORIDE 101 MEQ/L (98-107); GLOMERULAR FILTRATION RATE 164 ML/MIN (>89); POTASSIUM 3.2 MEQ/L (3.5-5.1); SODIUM (NA) 137 MEQ/L (136-145)
[2017-05-14 05:58] LABS: ALT (GPT) 54 U/L (12-78); AST (GOT) 50 U/L (15-37)
[2017-05-14 06:00] LABS: ALKALINE PHOSPHATASE 107 U/L (45-117); TOTAL BILIRUBIN ADULT 0.8 MG/DL (0.2-1.0)
[2017-05-14] MEDS: FOLIC ACID 1 MG TAB PO SCH (07:25)
[2017-05-14] MEDS: THIAMINE HCL 100 MG TAB PO SCH (07:25)
[2017-05-14] MEDS: MULTIVITAMINS/MINERALS THERAPEUTIC TAB PO SCH (07:25)
[2017-05-14] MEDS: VANCOMYCIN INJ 1,500 MG in SODIUM CHLORID 0.9% 500 ML INJ 500 ML IV SCH ×2 (07:25→21:00)
[2017-05-14] MEDS: ACETAMINOPHEN/HYDROcodone 325 MG/5 MG TAB PO PRN ×3 (07:25→18:28)
[2017-05-14 08:00] VITALS: BP 160/111; PULSE 63; RESP 18; TEMP 96.3; O2SAT 98
[2017-05-14] MEDS ORDERED: ENALAPRILAT 1.25 MG/ML VIAL IV PUSH PRN (08:45)
[2017-05-14] MEDS ORDERED: ENALAPRILAT 1.25 MG/ML VIAL IV PUSH ONE (08:45)
[2017-05-14 08:52] VITALS: BP 155/100
--- NOTE | 2017-05-14 09:52 | HHI.PR ---
Subjective Remarks Denies fevers/chills denies cp/sob no diarrhea denies rash other than psoriatic lesions BP elevated this am denies hallucinations and tremors Objective Vitals Vital Signs Date Time Temp Pulse Resp B/P Pulse Ox O2 Delivery O2 Flow Rate FiO2 05/14/17 08:52 155/100 05/14/17 08:00 96.3 63 18 160/111 98 05/14/17 04:00 96.7 70 19 136/94 97 05/14/17 00:00 97.9 71 20 125/85 95 05/13/17 20:00 98.5 90 19 128/95 97 05/13/17 16:00 98.6 83 16 119/80 96 05/13/17 16:00 98.6 83 16 119/80 96 05/13/17 12:00 98.0 80 19 121/80 97 I/O 05/13/17 05/13/17 05/13/17 05/14/17 05/14/17 05/14/17 06:59 14:59 22:59 06:59 14:59 22:59 Intake Total 974 ml 532 ml 240 ml 1759 ml Output Total 450 ml Balance 524 ml 532 ml 240 ml 1759 ml Intake Oral 390 ml 480 ml 240 ml 120 ml IV Total 584 ml 52 ml 1639 ml Output Urine Total 450 ml # Voids 4 2 1 # Bowel Movements 0 0 0 0 Result Diagram: 05/14/17 0512 05/14/17 0512 Imaging Last Impressions Hip MRI 05/13/17 0000 Signed Impressions: Service Date/Time: Saturday, May 13, 2017 09:20 - CONCLUSION: 1. Induration of the anterior right thigh associated with an apparent very small fluid collection that does show an intense enhancement, probably representing superficial cellulitis. This does appear to track into the inguinal region at the level of the common femoral artery and vein. The bulk of this was described on the CT scan of 05/11/2017. 2. Minimal bilateral inguinal adenopathy is present superficially as well. Bradley Avitia MD FACR Abdomen/Pelvis CT 05/11/17 1243 Signed Impressions: Service Date/Time: Thursday, May 11, 2017 13:11 - CONCLUSION: 1. Skin thickening and subcutaneous inflammatory changes along the right lateral pelvis , right inguinal region, and right lateral gluteal region. This could represent a severe cellulitis. There is no subcutaneous abscess. An enlarged right inguinal lymph node is present likely representing reactive lymphadenopathy. 2. Nonacute findings include hepatomegaly with severe steatosis and cholelithiasis. Marty Franco MD Objective Remarks GENERAL: Thin, well nourished patient SKIN: There are multiple open superficial wounds nickel size on both upper and lower extremities, abdomen, hips mostly dry. There is tenderness to palpation and swelling of the right hip and there is an indurated tender inflammation in the inguinal region. There are multiple psoriatic lessions in the skin, several in the lower extremities and buttocks. HEAD: Normocephalic. EYES: No scleral icterus. No injection or drainage. NECK: Supple, trachea midline. No JVD or lymphadenopathy. CARDIOVASCULAR: Regular rate and rhythm without murmurs, gallops, or rubs. RESPIRATORY: Breath sounds equal bilaterally. No accessory muscle use. GASTROINTESTINAL: Abdomen soft, non-tender, nondistended. MUSCULOSKELETAL: No cyanosis, or edema. BACK: Nontender without obvious deformity. No CVA tenderness. Medications and IVs Current Medications Medications (Trade) Dose Ordered Sig/Latrell Route Start Time Stop Time Status Last Admin Sodium Chloride 2 ml 2 ml UNSCH PRN IV FLUSH 05/11/17 12:45 (NS 1000 ml Inj) 1,000 ml @ 84 mls/hr [id number] IV 05/11/17 17:00 05/13/17 05:35 (Romazicon Inj) 0.2 mg Q1M PRN IV PUSH 05/11/17 16:45 (Ativan) 1 mg Q4H PRN PO 05/11/17 16:45 (Ativan Inj) 1 mg Q4H PRN IV PUSH 05/11/17 16:45 (Ativan) 2 mg Q2H PRN PO 05/11/17 16:45 (Ativan Inj) 2 mg Q2H PRN IV PUSH 05/11/17 16:45 (Ativan Inj) 2 mg Q1H PRN IV PUSH 05/11/17 16:45 (Ativan Inj) 2 mg Q15M PRN IV PUSH 05/11/17 16:45 (Folate) 1 mg DAILY PO 05/12/17 09:00 05/17/17 08:59 05/14/17 07:25 (Vitamin B1) 100 mg DAILY PO 05/12/17 09:00 05/14/17 07:25 (Theragran M Tab) 1 tab DAILY PO 05/12/17 09:00 05/17/17 08:59 05/14/17 07:25 (Lovenox Inj) 30 mg Q24H SQ 05/11/17 18:00 05/13/17 17:41 Acetaminophen/ Hydrocodone Bitart 1 tab 1 tab Q4H PRN PO 05/12/17 08:00 05/14/17 07:25 Pharmacy Profile Note 0 ml @ 0 mls/hr UNSCH OTHER 05/13/17 06:30 (Vancomycin Inj/ NS 500 ml Inj) 515 ml @ 257.5 mls/ hr Q12H IV 05/13/17 21:00 05/14/17 07:25 Miscellaneous Information SPECIFIC LAB TO BE [place]... ONCE ONCE .XX 05/15/17 08:45 05/15/17 08:46 (Zosyn 4.5 Gm Premix) 100 ml @ 200 mls/hr Q6H IV 05/13/17 20:00 05/14/17 07:24 (Vasotec Inj) 1.25 mg Q6H PRN IV PUSH 05/14/17 08:45 Urinary Catheter: No Vascular Central Line Catheter: No A/P Problem List: (1) Sepsis affecting skin ICD Code: A41.9 Status: Acute Plan: Present admission. Fever + tachycardia. Patient with multiple skin open wounds and history of staph infections. The patient was started on IV antibiotics, currently on IV vancomycin and IV Zosyn, Continue. ID consulted - antibiotics as per ID. Continue pain control with [place]. MRI showed induration of the anterior right thigh associated with an apparent very small fluid collection that shows an intense enhancement, probably representing superficial cellulitis. This appears to track into the inguinal region at the level of the common femoral artery and vein. Consult general surgery for evaluation for incision and drainage. Continue to follow up blood cultures, blood cultures negative to date. (2) Cellulitis ICD Code: L03.90 Status: Acute Plan: As above. Possible abscess on MRI - Surgery consulted. (3) Alcohol abuse ICD Code: F10.10 Status: Acute Plan: Continue CIWA protocol. Patient hypertensive but denies hallucinations. No tremors observed. Continue multivitamins and thiamine. Patient counseled for cessation. (4) Substance abuse ICD Code: F19.10 Status: Acute Plan: The patient has been counseled against use of illegal substances. (5) Psoriasis ICD Code: L40.9 Status: Acute Plan: Psoriasis exacerbation with multiple plaques over body. Will start patient on steroid cream. (6) HTN (hypertension) ICD Code: I10 Status: Acute Plan: The patient does not have a personal history of hypertension. Mitral withdrawal watch for alcohol withdrawal. I will start the patient on Vasotec 1.25 mg every 6 hours as needed for systolic blood pressure monitor 160. Assessment and Plan VT prophylaxis: SCDs, Lovenox subcutaneously. Discharge Planning Continue to monitor in the medical floor. Pending general surgery consult. Problem Qualifiers (1) Cellulitis: Qualified Code: L03.311 - Cellulitis of abdominal wall (2) HTN (hypertension): Qualified Code: I15.9 - Secondary hypertension Blayne Schultz MD May 14, 2017 09:52
--- NOTE | 2017-05-14 10:42 | HHI.PR ---
Addendum to Inpatient Note Additional Information Dw Dr Perez Surgery consulted - pt is tken for drainage of his abscess by Macey Clifford MD May 14, 2017 10:42
[2017-05-14] MEDS ORDERED: PROPOFOL 200 MG/20 ML AMP IV ONE (11:26)
[2017-05-14] MEDS ORDERED: ONDANSETRON HCL 4 MG/2 ML VIAL IV PUSH ONE (11:26)
[2017-05-14] MEDS ORDERED: DO NOT ADM ANY ANTICOAGULANT DRUGS PRN (12:08)
[2017-05-14] MEDS ORDERED: oxyCODONE/ACETAMINOPHEN 5 MG/325 MG TAB PO PRN (12:15)
[2017-05-14] MEDS ORDERED: MIDAZOLAM HCL 2 MG/2 ML VIAL ONE (12:16)
[2017-05-14] MEDS ORDERED: fentaNYL CITRATE 250 MCG/5 ML AMP ONE (12:16)
--- NOTE | 2017-05-14 15:44 | HHI.PR ---
Immediate Post Op Note Procedure Date: May 14, 2017 Pre Op Diagnosis: right hip abscess Post Op Diagnosis: same Surgeon: Pancho Joya MD Public Service Officer(s): see or sheet Procedure: I and D right hip abscess with vac Findings: pus Complications: none Specimen(s) removed: pus Estimated blood loss: 5cc Anesthesia: General Drains: Hemovac Patient to: PACU Patient Condition: Good Pancho Joya MD May 14, 2017 15:44
[2017-05-14 16:00] VITALS: BP 150/102; PULSE 72; RESP 19; TEMP 98.5; O2SAT 99
[2017-05-14] MEDS: ENOXAPARIN SODIUM 30 MG/0.3 ML SYRINGE SQ SCH (16:57)
--- NOTE | 2017-05-14 18:02 | MB ---
cc: ALYSSA DUDLEY MD DATE OF CONSULTATION: 05/13/2017 REASON FOR CONSULTATION: Right hip abscess. HISTORY OF PRESENT ILLNESS The patient is 36-hour-old male who presented initially on 05/11/2017 with complaints of right-sided groin and hip pain. The patient has history of chronic alcoholism and was admitted and had further work up including CT scan findings of induration and cellulitic like pattern to the right hip and groin area. He had further followup including MRI showing a small abscess cavity 4 x 2 cm with fluid and stranding and concern for infection. Therefore surgery was consulted for further evaluation. On my exam the patient with exquisite tenderness, palpation, right anterior hip area and inguinal area. He states this has been going on for several days now and continue to get worse. The patient denies any trauma or any history of abscess in the past. He states the pain was a 9/10, worse with palpation, better with lying still and minimal improvement after IV antibiotics and pain medication. The patient states the pain is non radiating and is very sharp. The patient had MRI reviewed by myself showing abscess and concern for non improvement with IV antibiotics alone. Therefore this at this point discussion for possible operative intervention. The patient further denies any significant fevers or chills. The patient does have history of seizure in the past. PAST MEDICAL HISTORY Seizures Chronic alcoholism PAST SURGICAL HISTORY Right forearm secondary to trauma. MEDICATIONS See EMR. ALLERGIES NO KNOWN DRUG ALLERGIES. FAMILY HISTORY Hypertension. Heart failure Alcoholism in family members SOCIAL HISTORY Positive EtOH, positive THC, positive smoking. REVIEW OF SYSTEMS GENERAL: The patient complains of headache. Denies fever, chills. HEAD, EYES, EARS, NOSE, AND THROAT: Denies blurry vision or diplopia. NECK: Denies swelling or pain. RESPIRATORY: Denies cough or wheeze. CARDIOVASCULAR SYSTEM: Denies chest pain or palpitations. GENITOURINARY: Complains of abdominal pain, lower anterior hip area. Denies nausea. GENITOURINARY: Denies dysuria, hematuria. MUSCULOSKELETAL: Denies arthralgia, myalgia. INTEGUMENT: The patient complained of cellulitis to right groin. Denies bruising or swelling. NEUROLOGIC: History of seizures, denies abnormal gait. PHYSICAL EXAMINATION GENERAL: The patient is in no acute distress. VITAL SIGNS: Temperature 99, pulse 70, respiration 18, blood pressure 130/93, saturation 99%. HEAD, EYES, EARS, NOSE, AND THROAT: Pupils equal, round, reactive to light and accommodation, pupils equal, round, reactive. NECK: Supple. Trachea midline. LUNGS: Bilateral expansion, clear. HEART: S1-S2 regular. ABDOMEN: Soft, nontender, nondistended. Right hip groin area. Positive tenderness to palpation. Mild cellulitis to inguinal and hip area. Fluctuance palpated. No evidence of drainage or punctate. GENITOURINARY: Within normal limits. EXTREMITIES: Warm, well-perfused. NEUROLOGIC: Sheela Coma Scale of 15, 5/5 movement of all extremities. INTEGUMENT: As above. BACK: Nontender. No step-offs. PSYCHIATRIC: Anxiety appropriate mood. LABORATORY AND DIAGNOSTIC DATA WBC 6.4, hemoglobin 13.6, hematocrit 41.1, platelets 143, sodium 135, potassium 3.3, BUN 8, creatinine 0.5, calcium 8.5, AST 44, ALT 52, Total bilirubin 0.8, lipase pending albumin 2.7. Imaging reviewed by myself. CT abdomen, pelvis showing thickening induration and lateral pelvis right inguinal region. No obvious abscess on 05/11/2017 05/13/2017 positive 2 x 4 cm small abscess cellulitic and induration appearing. ASSESSMENT The patient 36-year old male, history of chronic EtOH presents with abscess right hip pelvic area. PLAN After full clinical radiologic laboratory workup the patient above-named issues including right anterior hip abscess at this point discussion with the patient will plan to take the patient to the OR tomorrow for I&D of abscess. We will obtained of cultures and likely place back. Agree with IV antibiotics. Continue pain control. Continue management will make the patient n.p.o. after midnight. Again discussed with the patient and staff. MD REBECCA Hunter/julio /3:51 PM /5:55 PM
[2017-05-14 20:00] VITALS: BP 129/93; PULSE 69; RESP 17; TEMP 97.7; O2SAT 98
[2017-05-15] VITALS: BP 121/89; PULSE 64; RESP 17; TEMP 96.7; O2SAT 98
[2017-05-15] MEDS: PIPERACIL-TAZO 4.5 GM PREMIX 100 ML IV SCH ×3 (01:52→13:54)
[2017-05-15] MEDS: SODIUM CHLOR 0.9% 1000 ML INJ 1,000 ML IV SCH ×2 (04:25→20:27)
[2017-05-15 08:00] VITALS: BP 160/106; PULSE 61; RESP 18; TEMP 97.3; O2SAT 100
[2017-05-15] MEDS ORDERED: PHARMACY ORDERED LAB ONE (08:45)
[2017-05-15] MEDS: THIAMINE HCL 100 MG TAB PO SCH (08:47)
[2017-05-15] MEDS: MULTIVITAMINS/MINERALS THERAPEUTIC TAB PO SCH (08:47)
[2017-05-15] MEDS: FOLIC ACID 1 MG TAB PO SCH (08:47)
[2017-05-15] MEDS: VANCOMYCIN INJ 1,500 MG in SODIUM CHLORID 0.9% 500 ML INJ 500 ML IV SCH ×2 (08:49→20:26)
[2017-05-15] MEDS: ACETAMINOPHEN/HYDROcodone 325 MG/5 MG TAB PO PRN ×3 (08:52→22:54)
--- NOTE | 2017-05-15 10:30 | MP ---
cc: PANCHO JOYA MD DATE OF SURGERY: 05/14/2017 PREOPERATIVE DIAGNOSIS Right hip abscess. POSTOPERATIVE DIAGNOSIS Right hip abscess. PROCEDURE PERFORMED Incision and drainage of right hip abscess with negative pressure VAC placement. SURGEON Dr. Pancho Joya RAG WILLOW OPERATOR See OR sheet. ANESTHESIA General endotracheal. IV FLUIDS See anesthesia sheet. ESTIMATED BLOOD LOSS 5 cc. DRAINS Hemovac placement. COMPLICATIONS None. WOUND CLASSIFICATION Contaminated, dirty. SPECIMEN Purulent drainage sent for culture. FINDINGS Purulent pus cavity. INDICATION The patient is a 36-year-old male who presented with acute onset of right groin/hip pain. The patient noted some redness and swelling pain in this area. He had further work-up including CT scan several days ago and it showed some induration without evidence of abscess cavity. He had a repeat MRI several days later showing a small fluid-filled cavity with a lot of straining. Therefore, decision was made for operative intervention and consultation with the surgical team. Given his presentation the decision was made for operative planning. DETAILS OF PROCEDURE The patient was placed in the supine position. He was prepped and draped in the usual sterile fashion after induction of general endotracheal anesthesia. A brief timeout was done stating the correct patient, procedure and surgical site, and all were in agreement with this. Attention was directed to the right anterior inguinal region and ASIS area. A small transverse incision was made in this area. This was done with a 15 blade. Further dissection was done with Bovie electrocautery. Interdigitation and dissection was done in order to identify and find the purulent abscess cavity. Upon entry there was noted to be a significant amount of purulent drainage that was extruded. This was washed out with normal saline with multiple liters and then irrigated. Hemostasis was obtained. The Hemovac sponge was placed. The sponge was cut to the size of the wound and tracked somewhat laterally and a little medially as well. A second small sponge was placed at the elliptical incision of the wound bed. Next, a plastic drape was placed and the track pad was then placed. The VAC was hooked to -25 suction and there was no evidence of leaking. The patient tolerated the procedure well. There was no intraoperative complication. The patient was extubated and taken to PACU. MD REBECCA Hunter/ROBIN /1:27 PM /10:23 AM
[2017-05-15 11:17] LABS: AUTOMATED NEUTROPHIL # 3.9 TH/MM3 (1.8-7.7); BASOPHIL % 0.7 % (0.0-2.0); EOSINOPHIL # 0.1 TH/MM3 (0-0.4); EOSINOPHIL % 1.4 % (0.0-4.0); HEMATOCRIT 39.6 % (39.0-51.0); HEMO FLAGS DIFF FINAL; LYMPH % 16.3 % (9.0-44.0); LYMPHOCYTE # 0.9 TH/MM3 (1.0-4.8); MEAN CELL VOLUME 95.8 FL (80.0-100.0); MEAN CORPUSCULAR HEMOGLOBIN 32.3 PG (27.0-34.0); MEAN CORPUSCULAR HGB CONC 33.8 % (32.0-36.0); MONO % 12.5 % (0.0-8.0); NEUT % 69.1 % (16.0-70.0); PLATELET COUNT 191 TH/MM3 (150-450); RED BLOOD COUNT 4.13 MIL/MM3 (4.50-5.90); RED CELL DISTRIBUTION WIDTH 13.2 % (11.6-17.2); WHITE BLOOD COUNT 5.6 TH/MM3 (4.0-11.0)
[2017-05-15 11:38] LABS: BICARBONATE 31.4 MEQ/L (21.0-32.0); POTASSIUM 3.6 MEQ/L (3.5-5.1)
[2017-05-15 12:00] VITALS: BP 125/85; PULSE 63; RESP 17; TEMP 98.9; O2SAT 99
--- NOTE | 2017-05-15 12:28 | HHI.PR ---
Subjective Subjective Notes Resting in bed Painful at site of Wound Vac but tolerable Objective Vitals/I&O Vital Signs Date Time Temp Pulse Resp B/P Pulse Ox O2 Delivery O2 Flow Rate FiO2 05/15/17 09:52 18 05/15/17 08:00 97.3 61 160/106 100 05/14/17 12:40 Room Air 05/14/17 12:02 2 Labs Laboratory Tests Test 05/15/17 05/15/17 03:56 10:25 Creatinine 0.47 0.51 Estimat Glomerular Filtration 201 183 Rate White Blood Count 5.6 Red Blood Count 4.13 Hemoglobin 13.4 Hematocrit 39.6 Mean Corpuscular Volume 95.8 Mean Corpuscular Hemoglobin 32.3 Mean Corpuscular Hemoglobin 33.8 Concent Red Cell Distribution Width 13.2 Platelet Count 191 Mean Platelet Volume 7.9 Neutrophils (%) (Auto) 69.1 Lymphocytes (%) (Auto) 16.3 Monocytes (%) (Auto) 12.5 Eosinophils (%) (Auto) 1.4 Basophils (%) (Auto) 0.7 Neutrophils # (Auto) 3.9 Lymphocytes # (Auto) 0.9 Monocytes # (Auto) 0.7 Eosinophils # (Auto) 0.1 Basophils # (Auto) 0.0 CBC Comment DIFF FINAL Differential Comment Sodium Level 136 Potassium Level 3.6 Chloride Level 96 Carbon Dioxide Level 31.4 Anion Gap 9 Blood Urea Nitrogen 3 Random Glucose 104 Calcium Level 9.1 Date/Time Procedure Status Source Growth 05/14/17 11:48 Gram Stain - Final Resulted Wound Hip 05/14/17 11:48 Wound Culture Resulted Wound Hip Pending 05/14/17 11:48 Fungal Smear - Final Resulted Wound Hip NO FUNGAL ELEMENTS SEEN. 05/14/17 11:48 Fungal Culture Resulted Wound Hip Pending 05/14/17 11:48 Acid Fast Stain - Final Resulted Wound Hip NO ACID FAST BACILLI SEEN 05/14/17 11:48 Mycobacterial Culture Resulted Wound Hip Pending 05/11/17 13:10 Aerobic Blood Culture - Preliminary Resulted Blood Peripheral NO GROWTH IN 4 DAYS 05/11/17 13:10 Anaerobic Blood Culture - Preliminary Resulted Blood Peripheral NO GROWTH IN 4 DAYS Cardiovascular: Regular Lungs: Clear Abdomen: Non-distended, Non-tender Narrative Exam RIGHT hip ---Wound Vac in place with good seal; small amount of purulent drainage in canister A/P Assessment and Plan 36 year old male POD1 I&D of RIGHT hip abscess -Plan to transition to wet to dry dressings in the next day or two -Pain control -ID following for antibiotics -No more operative plans at this time Shantell Yan May 15, 2017 12:28
[2017-05-15 16:00] VITALS: BP 133/92; PULSE 66; RESP 17; TEMP 97.6; O2SAT 99
[2017-05-15] MEDS: ENOXAPARIN SODIUM 30 MG/0.3 ML SYRINGE SQ SCH (17:18)
--- NOTE | 2017-05-15 17:52 | HHI.IDPN ---
Subjective Subjective Remarks sp I+D op report noted: + large amount of pus Pt is growing GAS in clx tells pain is somewhat better afebrile Antibiotics zosyn added today vanco Allergies: Coded Allergies: No Known Allergies (Unverified , 05/11/17) Objective . Vital Signs Date Time Temp Pulse Resp B/P Pulse Ox O2 Delivery O2 Flow Rate FiO2 05/15/17 16:00 97.6 66 17 133/92 99 05/15/17 12:00 98.9 63 17 125/85 99 05/15/17 09:52 18 05/15/17 08:00 97.3 61 18 160/106 100 05/15/17 00:00 96.7 64 17 121/89 98 05/14/17 20:00 97.7 69 17 129/93 98 05/14/17 05/14/17 05/15/17 15:00 23:00 07:00 Intake Total 1012 ml 360 ml 240 ml Output Total 10 ml Balance 1002 ml 360 ml 240 ml Intake Oral 120 ml 360 ml 240 ml IV Total 592 ml Other 300 ml Estimated Blood Loss 10 ml # Voids 3 1 2 # Bowel Movements 1 . Laboratory Tests Test 05/13/17 05/14/17 05/15/17 17:57 05:12 10:25 White Blood Count 6.4 TH/MM3 5.6 TH/MM3 5.6 TH/MM3 Red Blood Count 4.29 MIL/MM3 4.02 MIL/MM3 4.13 MIL/MM3 Hemoglobin 13.6 GM/DL 13.1 GM/DL 13.4 GM/DL Hematocrit 41.1 % 38.4 % 39.6 % Mean Corpuscular Volume 95.7 FL 95.5 FL 95.8 FL Mean Corpuscular Hemoglobin 31.7 PG 32.5 PG 32.3 PG Mean Corpuscular Hemoglobin 33.1 % 34.0 % 33.8 % Concent Red Cell Distribution Width 13.3 % 13.1 % 13.2 % Platelet Count 143 TH/MM3 142 TH/MM3 191 TH/MM3 Mean Platelet Volume 8.2 FL 7.8 FL 7.9 FL Neutrophils (%) (Auto) 60.1 % 59.8 % 69.1 % Lymphocytes (%) (Auto) 21.4 % 21.2 % 16.3 % Monocytes (%) (Auto) 16.4 % 15.9 % 12.5 % Eosinophils (%) (Auto) 1.5 % 2.2 % 1.4 % Basophils (%) (Auto) 0.6 % 0.9 % 0.7 % Neutrophils # (Auto) 3.8 TH/MM3 3.3 TH/MM3 3.9 TH/MM3 Lymphocytes # (Auto) 1.4 TH/MM3 1.2 TH/MM3 0.9 TH/MM3 Monocytes # (Auto) 1.1 TH/MM3 0.9 TH/MM3 0.7 TH/MM3 Eosinophils # (Auto) 0.1 TH/MM3 0.1 TH/MM3 0.1 TH/MM3 Basophils # (Auto) 0.0 TH/MM3 0.1 TH/MM3 0.0 TH/MM3 CBC Comment DIFF FINAL DIFF FINAL DIFF FINAL Differential Comment Laboratory Tests Test 05/13/17 05/14/17 05/15/17 05/15/17 17:57 05:12 03:56 10:25 Sodium Level 135 MEQ/L 137 MEQ/L 136 MEQ/L Potassium Level 3.3 MEQ/L 3.2 MEQ/L 3.6 MEQ/L Chloride Level 99 MEQ/L 101 MEQ/L 96 MEQ/L Carbon Dioxide Level 27.9 MEQ/L 29.7 MEQ/L 31.4 MEQ/L Anion Gap 8 MEQ/L 6 MEQ/L 9 MEQ/L Blood Urea Nitrogen 6 MG/DL 5 MG/DL 3 MG/DL Creatinine 0.50 MG/DL 0.56 MG/DL 0.47 MG/DL 0.51 MG/DL Estimat Glomerular Filtration 187 ML/MIN 164 ML/MIN 201 ML/MIN 183 ML/MIN Rate Random Glucose 93 MG/DL 93 MG/DL 104 MG/DL Calcium Level 8.5 MG/DL 8.3 MG/DL 9.1 MG/DL Phosphorus Level 4.1 MG/DL Magnesium Level 1.8 MG/DL Total Bilirubin 0.8 MG/DL 0.8 MG/DL Aspartate Amino Transf 44 U/L 50 U/L (AST/SGOT) Alanine Aminotransferase 52 U/L 54 U/L (ALT/SGPT) Alkaline Phosphatase 118 U/L 107 U/L Total Protein 6.7 GM/DL 6.6 GM/DL Albumin 2.7 GM/DL 2.6 GM/DL Microbiology Date/Time Procedure Status Source Growth 05/14/17 11:48 Gram Stain - Final Resulted Wound Hip 05/14/17 11:48 Wound Culture - Preliminary Resulted Group A Beta Strep 05/14/17 11:48 Acid Fast Stain - Final Resulted Wound Hip NO ACID FAST BACILLI SEEN 05/14/17 11:48 Mycobacterial Culture Resulted Wound Hip Pending 05/14/17 11:48 Fungal Smear - Final Resulted Wound Hip NO FUNGAL ELEMENTS SEEN. 05/14/17 11:48 Fungal Culture Resulted Wound Hip Pending Imaging Last Impressions Hip MRI 05/13/17 0000 Signed Impressions: Service Date/Time: Saturday, May 13, 2017 09:20 - CONCLUSION: 1. Induration of the anterior right thigh associated with an apparent very small fluid collection that does show an intense enhancement, probably representing superficial cellulitis. This does appear to track into the inguinal region at the level of the common femoral artery and vein. The bulk of this was described on the CT scan of 05/11/2017. 2. Minimal bilateral inguinal adenopathy is present superficially as well. Bradley Avitia MD FACR Abdomen/Pelvis CT 05/11/17 1243 Signed Impressions: Service Date/Time: Thursday, May 11, 2017 13:11 - CONCLUSION: 1. Skin thickening and subcutaneous inflammatory changes along the right lateral pelvis , right inguinal region, and right lateral gluteal region. This could represent a severe cellulitis. There is no subcutaneous abscess. An enlarged right inguinal lymph node is present likely representing reactive lymphadenopathy. 2. Nonacute findings include hepatomegaly with severe steatosis and cholelithiasis. Marty Farnco MD Physical Exam CONSTITUTIONAL/GENERAL: This is an adequately nourished patient, in no apparent distress. TUBES/LINES/DRAINS: SKIN: No jaundice, rashes, + disseminated psoriatic lesions. Skin temperature appropriate. Not diaphoretic. Buttocks with excoriated lesions, some old pustulas , but no cellulitis no abscesses HEAD: Atraumatic. Normocephalic. EYES: Pupils equal and round and reactive. Extraocular motions intact. No scleral icterus. No injection or drainage. Fundi not examined. ENT: Hearing grossly normal. Nose without bleeding or purulent drainage. Throat without visible erythema, exudates, masses, or lesions. NECK: Trachea midline. Supple, nontender. No palpable thyroid enlargement or nodularity. CARDIOVASCULAR: Regular rate and rhythm without murmurs, gallops, or rubs. No JVD. Peripheral pulses symmetric. RESPIRATORY/CHEST: Symmetric, unlabored respirations. Clear to auscultation. Breath sounds equal bilaterally. No wheezes, rales, or rhonchi. GASTROINTESTINAL: Abdomen soft, non-tender, nondistended. No hepato-splenomegaly , or palpable masses. No guarding. Bowel sounds present. GENITOURINARY: Without palpable bladder distension. MUSCULOSKELETAL: Extremities without clubbing, cyanosis, or edema. No joint tenderness or effusion noted. No calf tenderness. No mottling or clubbing. STATUS LOCALIS: R hip ROM decreased 2/2 pain Improved edema, induration VAC in place with serosang dc LYMPHATICS: No palpable cervical or supraclavicular adenopathy. + inguinal LAD on the R NEUROLOGICAL: Awake and alert. Motor and sensory grossly within normal limits. Follows commands. Clear speech. Moves all extremities. PSYCHIATRIC: No obvious anxiety/depression. no apparent hallucinations or other psychotic thought process. Assessment & Plan Remarks R inguinal infection, phegmon, abscess - sp I+D no e/o hip infection Induration of the anterior right thigh associated with an apparent very small fluid collection that does show an intense enhancement, probably representing superficial cellulitis. This does appear to track into the inguinal region at the level of the common femoral artery and vein. Psorialysi, no actively infected leseion Hepatosteatosis ETOH abuse - cont vancomycin , change zosyn to cefazoline - monitor clx untill final Macey Brumfield MD May 15, 2017 17:52
[2017-05-15 18:05] VITALS: O2SAT 99
[2017-05-15] MEDS: ceFAZolin 2 GM PREMIX 50 ML IV SCH (18:19)
--- NOTE | 2017-05-15 19:35 | HHI.PR ---
Subjective Remarks Patient seen this morning around 10:30 AM. He reports that right groin pain at site of wound VAC is controlled. Denies any chest pain or shortness of breath. Denies any nausea or vomiting. Objective Vital Signs Date Time Temp Pulse Resp B/P Pulse Ox O2 Delivery O2 Flow Rate FiO2 05/15/17 18:05 99 21 05/15/17 16:00 97.6 66 17 133/92 99 05/15/17 12:00 98.9 63 17 125/85 99 05/15/17 09:52 18 05/15/17 08:00 97.3 61 18 160/106 100 05/15/17 00:00 96.7 64 17 121/89 98 05/14/17 20:00 97.7 69 17 129/93 98 I/O 05/14/17 05/14/17 05/14/17 05/15/17 05/15/17 05/15/17 07:00 15:00 23:00 07:00 15:00 23:00 Intake Total 1759 ml 1012 ml 360 ml 240 ml 960 ml Output Total 10 ml Balance 1759 ml 1002 ml 360 ml 240 ml 960 ml Intake Oral 120 ml 120 ml 360 ml 240 ml 960 ml IV Total 1639 ml 592 ml Other 300 ml Estimated Blood Loss 10 ml # Voids 1 3 1 2 3 # Bowel Movements 0 1 0 Result Diagram: 05/15/17 1025 05/15/17 1025 Objective Remarks GENERAL: patient sitting up in bed. Appears comfortable. Alert and oriented 3. SKIN: Warm and dry. HEAD: Normocephalic. EYES: No scleral icterus. No injection or drainage. NECK: Supple, trachea midline. No JVD CARDIOVASCULAR: Regular rate and rhythm without murmurs, gallops, or rubs. RESPIRATORY: Breath sounds equal bilaterally. No accessory muscle use. GASTROINTESTINAL: Abdomen soft, non-tender, nondistended. wound VAC to right groin. MUSCULOSKELETAL: No cyanosis, or edema. BACK: Nontender without obvious deformity. No CVA tenderness. A/P Assessment and Plan =====05/15/17==== //Staph abscess. Continue wound VAC as per surgery. Continue antibiotics as per infectious disease. Continue to monitor. //Sepsis affecting skin -Present admission. Fever + tachycardia. Patient with multiple skin open wounds and history of staph infections. The patient was started on IV antibiotics, currently on IV vancomycin and IV Zosyn, Continue. ID consulted - antibiotics as per ID. Continue pain control with [place]. MRI showed induration of the anterior right thigh associated with an apparent very small fluid collection that shows an intense enhancement, probably representing superficial cellulitis. This appears to track into the inguinal region at the level of the common femoral artery and vein. Consult general surgery for evaluation for incision and drainage. Continue to follow up blood cultures, blood cultures negative to date. //Cellulitis Possible abscess on MRI - Surgery consulted. -Continue antibiotics as per infectious disease. //Alcohol abuse - Continue CIWA protocol. Patient hypertensive but denies hallucinations. No tremors observed. Continue multivitamins and thiamine. Patient counseled for cessation. //Substance abuse - The patient has been counseled against use of illegal substances. //Psoriasis ICD Code: L40.9 Status: Acute Plan: Psoriasis exacerbation with multiple plaques over body. Will start patient on steroid cream. //HTN (hypertension) -The patient does not have a personal history of hypertension. Mitral withdrawal watch for alcohol withdrawal. -cont Vasotec 1.25 mg every 6 hours as needed for systolic blood pressure monitor 160. //DVT prophylaxis: SCDs, Lovenox subcutaneously. Francisco J Israel MD May 15, 2017 19:35
[2017-05-15 20:00] VITALS: BP 126/87; PULSE 67; RESP 17; TEMP 97.5; O2SAT 98
[2017-05-16] VITALS: BP 133/83; PULSE 61; RESP 17; TEMP 96.8; O2SAT 99
[2017-05-16] MEDS: ceFAZolin 2 GM PREMIX 50 ML IV SCH ×3 (02:47→17:30)
[2017-05-16] MEDS: SODIUM CHLOR 0.9% 1000 ML INJ 1,000 ML IV SCH ×2 (05:37→17:31)
[2017-05-16 08:00] VITALS: BP 158/95; PULSE 60; RESP 17; TEMP 97; O2SAT 99
[2017-05-16] MEDS: ACETAMINOPHEN/HYDROcodone 325 MG/5 MG TAB PO PRN ×4 (08:43→22:57)
[2017-05-16] MEDS ORDERED: PHARMACY ORDERED LAB ONE (08:45)
[2017-05-16] MEDS: FOLIC ACID 1 MG TAB PO SCH (08:57)
[2017-05-16] MEDS: MULTIVITAMINS/MINERALS THERAPEUTIC TAB PO SCH (08:57)
[2017-05-16] MEDS: THIAMINE HCL 100 MG TAB PO SCH (08:57)
[2017-05-16] MEDS: VANCOMYCIN INJ 1,500 MG in SODIUM CHLORID 0.9% 500 ML INJ 500 ML IV SCH (10:12)
--- NOTE | 2017-05-16 11:26 | HHI.PR ---
Subjective Subjective Notes Resting in bed No issues overnight Objective Vitals/I&O Vital Signs Date Time Temp Pulse Resp B/P Pulse Ox O2 Delivery O2 Flow Rate FiO2 05/16/17 08:00 97.0 60 17 158/95 99 05/15/17 18:05 21 05/14/17 12:40 Room Air 05/14/17 12:02 2 Labs Laboratory Tests Test 05/16/17 08:55 Vancomycin Level Trough 6.9 Date/Time Procedure Status Source Growth 05/14/17 11:48 Gram Stain - Final Resulted Wound Hip 05/14/17 11:48 Wound Culture - Preliminary Resulted Group A Beta Strep 05/14/17 11:48 Fungal Smear - Final Resulted Wound Hip NO FUNGAL ELEMENTS SEEN. 05/14/17 11:48 Fungal Culture Resulted Wound Hip Pending 05/14/17 11:48 Acid Fast Stain - Final Resulted Wound Hip NO ACID FAST BACILLI SEEN 05/14/17 11:48 Mycobacterial Culture Resulted Wound Hip Pending 05/11/17 13:10 Aerobic Blood Culture - Final Complete Blood Peripheral NO GROWTH IN 5 DAYS 05/11/17 13:10 Anaerobic Blood Culture - Final Complete Blood Peripheral NO GROWTH IN 5 DAYS Cardiovascular: Regular Lungs: Clear Abdomen: Non-distended, Non-tender Narrative Exam RIGHT groin ---Wound Vac in place with good seal; small amount of purulent drainage in canister A/P Assessment and Plan 36 year old male POD2 I&D of RIGHT hip abscess -Plan to transition to wet to dry dressings tomorrow; I will remove Wound Vac tomorrow -Pain control -ID following for antibiotics -No more operative plans at this time Shantell Yan May 16, 2017 11:26
[2017-05-16 12:00] VITALS: BP 153/99; PULSE 62; RESP 18; TEMP 98.1; O2SAT 98
[2017-05-16 16:00] VITALS: BP 137/97; PULSE 74; RESP 17; TEMP 98.7; O2SAT 99
[2017-05-16] MEDS: ENOXAPARIN SODIUM 30 MG/0.3 ML SYRINGE SQ SCH (17:30)
[2017-05-16] MEDS: VANCOMYCIN INJ 1,250 MG in SODIUM CHLOR 0.9% 250 ML INJ 250 ML IV SCH (17:30)
[2017-05-16 20:00] VITALS: BP 138/95; PULSE 98; RESP 21; TEMP 96.9; O2SAT 96
[2017-05-16] MEDS ORDERED: MAGNESIUM HYDROXIDE SUSP 30 ML CUP PO ONE (20:30)
[2017-05-16] MEDS ORDERED: DOCUSATE SODIUM 50 MG/SENNA 8.6 MG TAB PO ONE (20:30)
--- NOTE | 2017-05-16 20:55 | HHI.PR ---
Subjective Remarks Patient seen today around noon. Says he feels all right. Reports pain is controlled. Denies any bowel movement in 3 days. Objective Vital Signs Date Time Temp Pulse Resp B/P Pulse Ox O2 Delivery O2 Flow Rate FiO2 05/16/17 16:00 98.7 74 17 137/97 99 05/16/17 12:00 98.1 62 18 153/99 98 05/16/17 08:00 97.0 60 17 158/95 99 05/16/17 00:00 96.8 61 17 133/83 99 I/O 05/15/17 05/15/17 05/15/17 05/16/17 05/16/17 05/16/17 07:00 15:00 23:00 07:00 15:00 23:00 Intake Total 240 ml 960 ml 1309 ml 1056 ml 1442 ml Output Total 0 ml 0 ml Balance 240 ml 960 ml 1309 ml 1056 ml 1442 ml Intake Oral 240 ml 960 ml 240 ml 240 ml 720 ml IV Total 1069 ml 816 ml 722 ml Drainage Total 0 ml 0 ml # Voids 2 3 2 1 4 # Bowel Movements 0 0 Result Diagram: 05/15/17 1025 05/15/17 1025 Objective Remarks GENERAL: patient sitting up in bed. Appears comfortable. Alert and oriented 3. SKIN: Warm and dry. HEAD: Normocephalic. EYES: No scleral icterus. No injection or drainage. NECK: Supple, trachea midline. No JVD CARDIOVASCULAR: Regular rate and rhythm without murmurs, gallops, or rubs. RESPIRATORY: Breath sounds equal bilaterally. No accessory muscle use. GASTROINTESTINAL: Abdomen soft, non-tender, nondistended. wound VAC to right groin.unchanged. Positive bowelsounds MUSCULOSKELETAL: No cyanosis, or edema. BACK: Nontender without obvious deformity. No CVA tenderness. A/P Assessment and Plan =====05/16/17==== //Group A Strep abscess. Continue wound VAC as per surgery. Continue antibiotics as per infectious disease. Continue to monitor. //Constipation. Laxatives ordered. //Sepsis affecting skin -Present admission. Fever + tachycardia. Patient with multiple skin open wounds and history of staph infections. The patient was started on IV antibiotics, currently on IV vancomycin and IV Zosyn, Continue. ID consulted - antibiotics as per ID. Continue pain control with [place]. MRI showed induration of the anterior right thigh associated with an apparent very small fluid collection that shows an intense enhancement, probably representing superficial cellulitis. This appears to track into the inguinal region at the level of the common femoral artery and vein. Consult general surgery for evaluation for incision and drainage. Continue to follow up blood cultures, blood cultures negative to date. //Cellulitis Possible abscess on MRI - Surgery consulted. -Continue antibiotics as per infectious disease. //Alcohol abuse - Continue CIWA protocol. Patient hypertensive but denies hallucinations. No tremors observed. Continue multivitamins and thiamine. Patient counseled for cessation. //Substance abuse - The patient has been counseled against use of illegal substances. //Psoriasis ICD Code: L40.9 Status: Acute Plan: Psoriasis exacerbation with multiple plaques over body. Will start patient on steroid cream. //HTN (hypertension) -The patient does not have a personal history of hypertension. Mitral withdrawal watch for alcohol withdrawal. -cont Vasotec 1.25 mg every 6 hours as needed for systolic blood pressure monitor 160. //DVT prophylaxis: SCDs, Lovenox subcutaneously. Francisco J Israel MD May 16, 2017 20:55
[2017-05-17] VITALS: BP 143/100; PULSE 77; RESP 20; TEMP 98; O2SAT 100
[2017-05-17] MEDS: VANCOMYCIN INJ 1,250 MG in SODIUM CHLOR 0.9% 250 ML INJ 250 ML IV SCH (02:07)
[2017-05-17] MEDS: ceFAZolin 2 GM PREMIX 50 ML IV SCH ×2 (02:07→07:25)
[2017-05-17] MEDS: SODIUM CHLOR 0.9% 1000 ML INJ 1,000 ML IV SCH (04:14)
[2017-05-17] MEDS: ACETAMINOPHEN/HYDROcodone 325 MG/5 MG TAB PO PRN ×3 (04:54→13:54)
[2017-05-17 06:04] LABS: AUTOMATED NEUTROPHIL # 2.2 TH/MM3 (1.8-7.7); BASOPHIL # 0.1 TH/MM3 (0-0.2); BASOPHIL % 1.4 % (0.0-2.0); EOSINOPHIL # 0.1 TH/MM3 (0-0.4); EOSINOPHIL % 2.7 % (0.0-4.0); HEMO FLAGS DIFF FINAL; LYMPH % 27.7 % (9.0-44.0); LYMPHOCYTE # 1.3 TH/MM3 (1.0-4.8); MEAN CELL VOLUME 96.1 FL (80.0-100.0); MEAN CORPUSCULAR HGB CONC 34.3 % (32.0-36.0); MONO % 19.9 % (0.0-8.0); NEUT % 48.3 % (16.0-70.0); PLATELET COUNT 207 TH/MM3 (150-450); RED BLOOD COUNT 3.95 MIL/MM3 (4.50-5.90); RED CELL DISTRIBUTION WIDTH 13.1 % (11.6-17.2); WHITE BLOOD COUNT 4.5 TH/MM3 (4.0-11.0)
[2017-05-17 06:23] LABS: POTASSIUM 3.8 MEQ/L (3.5-5.1)
[2017-05-17] MEDS: THIAMINE HCL 100 MG TAB PO SCH (07:25)
[2017-05-17 08:00] VITALS: BP 137/93; PULSE 71; RESP 14; TEMP 96.9; O2SAT 99
[2017-05-17] MEDS ORDERED: PHARMACY ORDERED LAB ONE (09:45)
[2017-05-17 12:00] VITALS: BP 139/79; PULSE 58; RESP 15; TEMP 97.3; O2SAT 98
--- NOTE | 2017-05-17 14:34 | HHI.PR ---
Subjective Subjective Notes Resting in bed No issues Objective Vitals/I&O Vital Signs Date Time Temp Pulse Resp B/P Pulse Ox O2 Delivery O2 Flow Rate FiO2 05/17/17 12:00 97.3 58 15 139/79 98 05/15/17 18:05 21 05/14/17 12:40 Room Air 05/14/17 12:02 2 Labs Laboratory Tests Test 05/17/17 05/17/17 04:54 09:50 White Blood Count 4.5 Red Blood Count 3.95 Hemoglobin 13.0 Hematocrit 38.0 Mean Corpuscular Volume 96.1 Mean Corpuscular Hemoglobin 33.0 Mean Corpuscular Hemoglobin 34.3 Concent Red Cell Distribution Width 13.1 Platelet Count 207 Mean Platelet Volume 7.8 Neutrophils (%) (Auto) 48.3 Lymphocytes (%) (Auto) 27.7 Monocytes (%) (Auto) 19.9 Eosinophils (%) (Auto) 2.7 Basophils (%) (Auto) 1.4 Neutrophils # (Auto) 2.2 Lymphocytes # (Auto) 1.3 Monocytes # (Auto) 0.9 Eosinophils # (Auto) 0.1 Basophils # (Auto) 0.1 CBC Comment DIFF FINAL Differential Comment Sodium Level 139 Potassium Level 3.8 Chloride Level 100 Carbon Dioxide Level 33.0 Anion Gap 6 Blood Urea Nitrogen 3 Creatinine 0.58 Estimat Glomerular Filtration 158 Rate Random Glucose 81 Calcium Level 8.6 Phosphorus Level 3.9 Magnesium Level 2.0 Albumin 2.8 Vancomycin Level Trough 17.1 Date/Time Procedure Status Source Growth 05/14/17 11:48 Gram Stain - Final Complete Wound Hip 05/14/17 11:48 Wound Culture - Final Complete Group A Beta Strep 05/14/17 11:48 Fungal Smear - Final Resulted Wound Hip NO FUNGAL ELEMENTS SEEN. 05/14/17 11:48 Fungal Culture Resulted Wound Hip Pending 05/14/17 11:48 Acid Fast Stain - Final Resulted Wound Hip NO ACID FAST BACILLI SEEN 05/14/17 11:48 Mycobacterial Culture Resulted Wound Hip Pending Cardiovascular: Regular Lungs: Clear Abdomen: Non-distended, Non-tender Extremities: No edema Narrative Exam RIGHT groin ---Wound Vac in place with good seal; small amount of purulent drainage in canister ---Wound Vac removed--- Wound bed clean---packed with wet to dry dressing A/P Assessment and Plan 36 year old male POD3 I&D of RIGHT hip abscess -Wound Vac DCed -Wet to dry dressing BID -Pain control -ID following for antibiotics -GS clear for DC; please call with questions Shantell Yan May 17, 2017 14:34
--- NOTE | 2017-05-17 14:43 | HHI.IDPN ---
Subjective Subjective Remarks doingh well wants to go home some pain R groin Antibiotics cefazoline Allergies: Coded Allergies: No Known Allergies (Unverified , 05/11/17) Objective . Vital Signs Date Time Temp Pulse Resp B/P Pulse Ox O2 Delivery O2 Flow Rate FiO2 05/17/17 12:00 97.3 58 15 139/79 98 05/17/17 08:00 96.9 71 14 137/93 99 05/17/17 00:00 98.0 77 20 143/100 100 05/16/17 20:00 96.9 98 21 138/95 96 05/16/17 16:00 98.7 74 17 137/97 99 05/16/17 05/16/17 05/17/17 15:00 23:00 07:00 Intake Total 1442 ml 480 ml 1175 ml Output Total 0 ml Balance 1442 ml 480 ml 1175 ml Intake Oral 720 ml 480 ml 360 ml IV Total 722 ml 815 ml Drainage Total 0 ml # Voids 4 2 3 # Bowel Movements 0 1 1 . Laboratory Tests Test 05/17/17 04:54 White Blood Count 4.5 TH/MM3 Red Blood Count 3.95 MIL/MM3 Hemoglobin 13.0 GM/DL Hematocrit 38.0 % Mean Corpuscular Volume 96.1 FL Mean Corpuscular Hemoglobin 33.0 PG Mean Corpuscular Hemoglobin 34.3 % Concent Red Cell Distribution Width 13.1 % Platelet Count 207 TH/MM3 Mean Platelet Volume 7.8 FL Neutrophils (%) (Auto) 48.3 % Lymphocytes (%) (Auto) 27.7 % Monocytes (%) (Auto) 19.9 % Eosinophils (%) (Auto) 2.7 % Basophils (%) (Auto) 1.4 % Neutrophils # (Auto) 2.2 TH/MM3 Lymphocytes # (Auto) 1.3 TH/MM3 Monocytes # (Auto) 0.9 TH/MM3 Eosinophils # (Auto) 0.1 TH/MM3 Basophils # (Auto) 0.1 TH/MM3 CBC Comment DIFF FINAL Differential Comment Laboratory Tests Test 05/17/17 04:54 Sodium Level 139 MEQ/L Potassium Level 3.8 MEQ/L Chloride Level 100 MEQ/L Carbon Dioxide Level 33.0 MEQ/L Anion Gap 6 MEQ/L Blood Urea Nitrogen 3 MG/DL Creatinine 0.58 MG/DL Estimat Glomerular Filtration 158 ML/MIN Rate Random Glucose 81 MG/DL Calcium Level 8.6 MG/DL Phosphorus Level 3.9 MG/DL Magnesium Level 2.0 MG/DL Albumin 2.8 GM/DL Imaging Last Impressions Hip MRI 05/13/17 0000 Signed Impressions: Service Date/Time: Saturday, May 13, 2017 09:20 - CONCLUSION: 1. Induration of the anterior right thigh associated with an apparent very small fluid collection that does show an intense enhancement, probably representing superficial cellulitis. This does appear to track into the inguinal region at the level of the common femoral artery and vein. The bulk of this was described on the CT scan of 05/11/2017. 2. Minimal bilateral inguinal adenopathy is present superficially as well. Bradley Avitia MD FACR Abdomen/Pelvis CT 05/11/17 1243 Signed Impressions: Service Date/Time: Thursday, May 11, 2017 13:11 - CONCLUSION: 1. Skin thickening and subcutaneous inflammatory changes along the right lateral pelvis , right inguinal region, and right lateral gluteal region. This could represent a severe cellulitis. There is no subcutaneous abscess. An enlarged right inguinal lymph node is present likely representing reactive lymphadenopathy. 2. Nonacute findings include hepatomegaly with severe steatosis and cholelithiasis. Marty Franco MD Physical Exam CONSTITUTIONAL/GENERAL: This is an adequately nourished patient, in no apparent distress. TUBES/LINES/DRAINS: SKIN: No jaundice, rashes, + disseminated psoriatic lesions. STATUS LOCALIS: R hip with full ROM resolved edema, minimal induration packed with gauze, small amount of serosang d/c Assessment & Plan Remarks R inguinal infection, phegmon, abscess - sp I+D no e/o hip infection Induration of the anterior right thigh associated with an apparent very small fluid collection that does show an intense enhancement, probably representing superficial cellulitis. This does appear to track into the inguinal region at the level of the common femoral artery and vein. Psorialysi, no actively infected leseion Hepatosteatosis ETOH abuse - dc cefazoline - amoxicillin 500 tid x 10 days OK to dc home dw Dr Jhonatan Brumfield,Macey Ward MD May 17, 2017 14:43
[2017-05-17] MEDS ORDERED: AMOX500C PO (14:45)
[2017-05-17] MEDS ORDERED: HYDR-3516 PO (14:48)
--- NOTE | 2017-05-20 09:02 | HHI.DS ---
Discharge Summary Admission Date May 11, 2017 at 15:09 Discharge Date: May 17, 2017 Admitting Diagnosis disseminated staphylococcal infection, abdominal pain (1) Sepsis affecting skin ICD Code: A41.9 (2) Cellulitis ICD Code: L03.90 (3) Alcohol abuse ICD Code: F10.10 (4) Substance abuse ICD Code: F19.10 (5) Psoriasis ICD Code: L40.9 (6) HTN (hypertension) ICD Code: I10 Brief History - From Admission Patient is a 36-year-old male currently in between homes admits to chronic alcoholism who about a week prior to admission complaining of pain on the abdominal discomfort most felt in the right lower quadrant and right hip area. Patient denies any fever or chills. Initially felt uncomfortable however increasing pain in the area. Today with increasing "excruciating pain" and cannot get comfortable. which prompted consult to ER patient. Patient also on examination of the skin has lateral open wound/scabs/source which he states that he gets on and off for the past 2 weeks. He however denies any fever or chills. Denies any urinary symptoms of dysuria or urgency or incontinence. Patient denies any diarrhea constipation melena or hematochezia. He does states that he had seizures related to alcohol withdrawal. Last episode was in January 2017. Patient admitted for further evaluation and management. CBC/BMP: 05/17/17 0454 05/17/17 0454 Significant Findings Laboratory Tests Test 05/17/17 09:50 Vancomycin Level Trough 17.1 MCG/ML (5.0-10.0) Imaging Last Impressions Hip MRI 05/13/17 0000 Signed Impressions: Service Date/Time: Saturday, May 13, 2017 09:20 - CONCLUSION: 1. Induration of the anterior right thigh associated with an apparent very small fluid collection that does show an intense enhancement, probably representing superficial cellulitis. This does appear to track into the inguinal region at the level of the common femoral artery and vein. The bulk of this was described on the CT scan of 05/11/2017. 2. Minimal bilateral inguinal adenopathy is present superficially as well. Bradley Avitia MD FACR Abdomen/Pelvis CT 05/11/17 1243 Signed Impressions: Service Date/Time: Thursday, May 11, 2017 13:11 - CONCLUSION: 1. Skin thickening and subcutaneous inflammatory changes along the right lateral pelvis , right inguinal region, and right lateral gluteal region. This could represent a severe cellulitis. There is no subcutaneous abscess. An enlarged right inguinal lymph node is present likely representing reactive lymphadenopathy. 2. Nonacute findings include hepatomegaly with severe steatosis and cholelithiasis. Marty Franco MD PE at Discharge GENERAL: Thin, well nourished patient SKIN: There are multiple open superficial wounds nickel size on both upper and lower extremities, abdomen, hips mostly dry. There is tenderness to palpation and swelling of the right hip and there is an indurated tender inflammation in the inguinal region. There are multiple psoriatic lessions in the skin, several in the lower extremities and buttocks. HEAD: Normocephalic. EYES: No scleral icterus. No injection or drainage. NECK: Supple, trachea midline. No JVD or lymphadenopathy. CARDIOVASCULAR: Regular rate and rhythm without murmurs, gallops, or rubs. RESPIRATORY: Breath sounds equal bilaterally. No accessory muscle use. GASTROINTESTINAL: Abdomen soft, non-tender, nondistended. MUSCULOSKELETAL: No cyanosis, or edema. BACK: Nontender without obvious deformity. No CVA tenderness. Hospital Course =====05/16/17==== //Group A Strep abscess. Continue wound VAC as per surgery. Continue antibiotics as per infectious disease. Continue to monitor. //Constipation. Laxatives ordered. //Sepsis affecting skin -Present admission. Fever + tachycardia. Patient with multiple skin open wounds and history of staph infections. The patient was started on IV antibiotics, currently on IV vancomycin and IV Zosyn, Continue. ID consulted - antibiotics as per ID. Continue pain control with Ferney. MRI showed induration of the anterior right thigh associated with an apparent very small fluid collection that shows an intense enhancement, probably representing superficial cellulitis. This appears to track into the inguinal region at the level of the common femoral artery and vein. Consult general surgery for evaluation for incision and drainage. Continue to follow up blood cultures, blood cultures negative to date. //Cellulitis Possible abscess on MRI - Surgery consulted. -Continue antibiotics as per infectious disease. //Alcohol abuse - Continue CIWA protocol. Patient hypertensive but denies hallucinations. No tremors observed. Continue multivitamins and thiamine. Patient counseled for cessation. //Substance abuse - The patient has been counseled against use of illegal substances. //Psoriasis ICD Code: L40.9 Status: Acute Plan: Psoriasis exacerbation with multiple plaques over body. Will start patient on steroid cream. //HTN (hypertension) -The patient does not have a personal history of hypertension. Mitral withdrawal watch for alcohol withdrawal. -cont Vasotec 1.25 mg every 6 hours as needed for systolic blood pressure monitor 160. //DVT prophylaxis: SCDs, Lovenox subcutaneously. Pt Condition on Discharge: Good Discharge Disposition: Discharge Home Discharge Time: > 30 minutes Discharge Instructions DIET: Follow Instructions for: As Tolerated, No Restrictions Activities you can perform: Regular-No Restrictions Follow up Referrals: PCP Follow-up - 1 Week with Vesna Lewis MD Surgical - 10 Days with Pancho Joya MD New Medications: Amoxicillin (Amoxicillin) 500 Mg Cap 500 MG PO TID Infection Days 10 Ref 0 CAP Hydrocodone-Acetaminophen (Hydrocodone-Acetaminophen) 5-325 mg Tab 1 TAB PO Q4H PRN PAIN SCALE 4 TO 10 #42 TAB Francisco J Israel MD May 20, 2017 09:02
== END 2017-05-17 15:48 | disposition home or self-care (01) | DRG 854 ==
LOC: NEPD 11:36 → NEDA 15:09 → N07A 16:46
PROVIDERS: ADMIT Internal Medicine; ATTEND Internal Medicine
PROC: 0J9L0ZZ Drainage of Right Upper Leg Subcutaneous Tissue and Fascia, Open Approach (ICD-10-PCS; principal; 2017-05-14 11:07)
DX: A41.9 Sepsis, unspecified organism (principal); L02.415 Cutaneous abscess of right lower limb; E87.2 Acidosis; L03.115 Cellulitis of right lower limb; R56.9 Unspecified convulsions; L03.311 Cellulitis of abdominal wall; F10.239 Alcohol dependence with withdrawal, unspecified; B95.8 Unspecified staphylococcus as the cause of diseases classified elsewhere; I10 Essential (primary) hypertension; K59.00 Constipation, unspecified; K80.20 Calculus of gallbladder without cholecystitis without obstruction; F12.90 Cannabis use, unspecified, uncomplicated; F17.210 Nicotine dependence, cigarettes, uncomplicated; L40.9 Psoriasis, unspecified; Z59.0 Homelessness; Z86.19 Personal history of other infectious and parasitic diseases
CPT/HCPCS: 73723; 74176; 80048; 80053; 80069; 80202; 80307; 81001; 82565; 83605; 83690; 83735; 84100; 85025; 85652; 86140; 86403; 87015; 87040; 87070; 87102; 87116; 87205; 87206; 96361; 96365; 96367; 96375; A9579; J0690; J1650; J1885; J2250; J2270; J2405; J2543; J3010; J3370; J7030; J7040; J7050

== ENCOUNTER 2017-12-22 09:42 | Emergency (ER) | payer SELFPAY ==
[~2017-12-22] VITALS: Ht 180.3 cm; Wt 93.0 kg
[~2017-12-22 09:42] MED LIST changes: +AMOX500C PO; -CHLO25 PO; +HYDR-3516 PO
[2017-12-22 09:43] VITALS: BP 117/70; PULSE 118; RESP 13; TEMP 98.5; O2SAT 97
[2017-12-22] MEDS ORDERED: CEPHALEXIN MONOHYDRATE 500 MG CAP PO ONE (10:00)
[2017-12-22] MEDS ORDERED: SULFAMETHOXAZOLE-TRIMETHOPRIM DS 800-160 MG TAB PO ONE (10:00)
[2017-12-22] MEDS ORDERED: ACETAMINOPHEN/HYDROcodone 325 MG/5 MG TAB PO ONE (10:15)
[2017-12-22] MEDS ORDERED: CEPH-460 PO (10:16)
[2017-12-22] MEDS ORDERED: BACT800T5 PO (10:16)
[2017-12-22] MEDS ORDERED: IBUP-232 PO (10:16)
--- NOTE | 2017-12-22 10:17 | PD ---
HPI Chief Complaint: Skin Problem Time Seen by Provider: 09:54 Travel History International Travel<30 days: No Contact w/Intl Traveler<30days: No Traveled to known affect area: No History of Present Illness HPI 37-year-old male presents to the emergency department for evaluation of abscess to his left upper arm that started on Saturday, 4 days ago. Patient is currently 10/10 without radiation. He is not currently on antibiotics. He denies any history of IV drug use. No fevers or chills. Moderate severity. Exacerbating or alleviating factors. PFSH Past Medical History Anxiety: Yes Depression: Yes Cardiovascular Problems: Yes Chest Pain: Yes Diminished Hearing: No Endocrine: No Genitourinary: No Hypertension: Yes Musculoskeletal: Yes Respiratory: Yes Integumentary: Yes (psoriasis) Seizures: Yes Tetanus Vaccination: < 5 Years Influenza Vaccination: No Past Surgical History Other Surgery: Yes (Elbow surgery as a child) Social History Alcohol Use: Yes (SOCIALLY ) Tobacco Use: Yes (1 PPD) Substance Use: No Allergies-Medications (Allergen,Severity, Reaction): Coded Allergies: No Known Allergies (Unverified Adverse Reaction, Unknown, 12/22/17) Reported Meds & Prescriptions Reported Meds & Active Scripts Active No Active Prescriptions or Reported Medications Review of Systems Except as stated in HPI: all other systems reviewed are Neg Physical Exam Narrative GENERAL: Well-nourished, well-developed male patient, ambulatory. Afebrile. SKIN: Focused skin assessment warm/dry. Patient has 3 cm fluctuant abscess to the left anterior upper arm. He has mild surrounding erythema. HEAD: Normocephalic. Atraumatic. EYES: No scleral icterus. No injection or drainage. NECK: Supple, trachea midline. No JVD or lymphadenopathy. CARDIOVASCULAR: Regular rate and rhythm without murmurs, gallops, or rubs. RESPIRATORY: Breath sounds equal bilaterally. No accessory muscle use. Lungs sounds are clear to auscultation. GASTROINTESTINAL: Abdomen soft, non-tender, nondistended. MUSCULOSKELETAL: No cyanosis, or edema. BACK: Nontender without obvious deformity. No CVA tenderness. Data Data Last Documented VS Vital Signs Date Time Temp Pulse Resp B/P (MAP) Pulse Ox O2 Delivery O2 Flow Rate FiO2 12/22/17 09:43 98.5 118 13 117/70 (86) 97 Orders Orders Wound Culture And Gram Stain (12/22/17 10:00) Sulfamet-Trimeth Ds 800-160 Mg (Bactrim (12/22/17 10:00) Cephalexin (Keflex) (12/22/17 10:00) Acetamin-Hydrocod 325-5 Mg ([place] 5-325 (12/22/17 10:15) MDM Medical Decision Making Medical Screen Exam Complete: Yes Emergency Medical Condition: Yes Medical Record Reviewed: Yes Differential Diagnosis Abscess versus cellulitis versus cyst Narrative Course 37-year-old male presents to the emergency department for evaluation of an abscess to his left upper arm. Patient agrees to incision and drainage. Patient will be started on Bactrim and Keflex. He is given [place] 5/325 mg by mouth in the emergency department for pain. Patient is instructed on proper wound care. He is stable for discharge. The patient was discharged in stable condition with instructions, including return instructions and follow up instructions. Procedures Procedure Narrative INCISION AND DRAINAGE OF ABSCESS: The area was prepped and was sterilely draped. A subcutaneous wheal of 1% Xylocaine with epinephrine with a total number 4 mL was used to anesthetize the area. The area was properly anesthetized. A number 11 scalpel was used to make a 1-cm incision across the area of the abscess. Cultures were obtained. The abscess was drained an irrigated with normal saline. Quarter inch iodoform packing was placed in the wound. Sterile dressing applied. Patient advised to have packing removed in two days. Diagnosis Primary Impression: Abscess Referrals: Primary Care Physician call for appointment Patient Instructions: Abscess (ED), Abscess Incision and Drainage (GEN), General Instructions Additional Instructions: Take antibiotics as directed until gone. Take ibuprofen as instructed as needed with food for pain. Clean twice daily with soap and water and apply [id number] antibiotic ointment. Packing removal in 2 days. Follow-up with your primary care physician. Return to the emergency department for any acute worsening of symptoms. Med/Other Pt SpecificInfo: Prescription(s) given Scripts Ibuprofen (Ibuprofen) 600 Mg Tab 600 MG PO TID Y for PAIN SCALE 1 TO 10, #21 TAB 0 Refills Prov: Clari Hicks 12/22/17 Cephalexin (Keflex) 500 Mg Cap 500 MG PO Q6H for Infection for 10 Days, #40 CAP 0 Refills Prov: Clari Hicks 12/22/17 Sulfamethoxazole-Trimethoprim (Bactrim DS) 800-160 Mg Tab 1 TAB PO BID for Infection, #20 TAB 0 Refills Prov: Clari Hicks 12/22/17 Disposition: 01 DISCHARGE HOME Condition: Stable Clari Hicks Dec 22, 2017 10:17
== END 2017-12-22 11:11 | disposition home or self-care (01) ==
LOC: NEPD 09:42
DX: L02.414 Cutaneous abscess of left upper limb (principal); F17.200 Nicotine dependence, unspecified, uncomplicated
CPT/HCPCS: 10061; 87070; 87205